=== PATIENT | female | born 1950 | race Caucasian/White ===

== ENCOUNTER → 2017-10-31 01:08 | Outpatient (CLI) | payer MEDICARE, SELFPAY ==
--- NOTE | 2017-10-31 14:33 | DI.REPORT_ITS ---
SYMPTOM/DIAGNOSIS: WORSENING LOW BACK PAIN, LOW BACK PKAIN M54.5 LUMBOSACRAL SPINE MRI: 10/31 MR examination of the lumbosacral spine was performed according to the usual protocol. No significant bony signal abnormality seen apart from zabrina discal vertebral signal changes at L4-5 consistent with disc degeneration. There are prominent hypertrophic changes of the facet joints particularly at L4- 5 and L5-S1. There is a marked spondylolisthesis or pseudo spondylolisthesis of L4 on L5. This is grossly unchanged from the findings on previous CT of 07/18/2015 and there is approximately 30% vertebral width anterior displacement. Neural foramen appears narrowed at L4-5 on the right. Otherwise neural foramina appear fairly well maintained. There is mild disc bulge at L5-S1. No other significant findings at this level. There is severe central canal spinal stenosis at L4-5. There is moderate central canal spinal stenosis at L3-4. There is mild central canal spinal stenosis at L2-3. CONCLUSION: Marked facet hypertrophic degenerative changes causing severe central canal spinal stenosis at L4-5. Moderate central canal spinal stenosis noted at L3-4 and mild central canal spinal stenosis at L2-3. Disc bulges contribute to the degree of central canal spinal stenosis at each of these levels without evidence of a focal disc herniation. There is moderate anterior pseudospondylolisthesis of L5 on L5. Incidental note is made of a large upper pole right renal cyst.
== END ==
PROVIDERS: PCP Family Medicine; Visit Provider Family Medicine
DX: M54.5 Low back pain (principal); M47.816 Spondylosis without myelopathy or radiculopathy, lumbar region; M48.061 Spinal stenosis, lumbar region without neurogenic claudication; M43.16 Spondylolisthesis, lumbar region
CPT/HCPCS: 72148

== ENCOUNTER 2017-11-09 10:09 | Outpatient (CLI) | payer MEDICARE, SELFPAY | END 2017-11-09 10:10 | PROVIDERS: PCP Family Medicine; Visit Provider Student in an Organized Health Care Education/Training Program | DX: Z47.89 Encounter for other orthopedic aftercare (principal); G56.01 Carpal tunnel syndrome, right upper limb; M48.062 Spinal stenosis, lumbar region with neurogenic claudication | CPT/HCPCS: 99214 ==

== ENCOUNTER 2018-05-13 14:31 | Outpatient (CLI) | payer MEDICARE, SELFPAY ==
--- NOTE | 2018-05-13 14:26 | DI.RAD_ITS ---
SYMPTOM/DIAGNOSIS: NECK AND LT SHOULDER PAIN LEFT SHOULDER: There is mild spurring at the AC joint. Spurring is seen at the glenoid. There is no glenohumeral joint space narrowing. The humeral head appears normally positioned. No tendon or joint space calcifications are seen. IMPRESSION: Mild degenerative changes. CERVICAL SPINE: There is moderate narrowing of the C 5-6 disc space. There are endplate osteophytes projecting circumferentially at this level. The remaining disc spaces are well maintained. There are mild to moderate facet degenerative changes throughout. There are also degenerative changes at C 1-2. IMPRESSION: Degenerative disc changes at C 5-6. Facet degenerative changes are seen throughout the spine.
== END 2018-05-13 14:51 ==
PROVIDERS: PCP Family Medicine; Referring Provider Family Medicine; Visit Provider Student in an Organized Health Care Education/Training Program
DX: M54.2 Cervicalgia (principal); M19.012 Primary osteoarthritis, left shoulder; M50.322 Other cervical disc degeneration at C5-C6 level; M47.812 Spondylosis without myelopathy or radiculopathy, cervical region
CPT/HCPCS: 20610; 99212; 99213; 72050; 73030; J1040

== ENCOUNTER 2019-02-12 02:25 | Outpatient (CLI) | payer MEDICARE, SELFPAY ==
[2019-02-12 10:40] LABS: Anion Gap 13.6 mmol/L (3-11); BUN 20 mg/dL (7-18); CO2 25.4 mmol/L (21.0-32.0); CREATININE 0.74 mg/dL (0.55-1.02); Calculated LDL 104 mg/dL; Chloride 106 mmol/L (98-107); Cholesterol 184 mg/dL (<200); Glucose 112 mg/dL (74-106); HDL Cholesterol 58 mg/dL (40-60); Potassium 4.1 mmol/L (3.5-5.1); Sodium 145 mmol/L (136-145); Triglyceride 113 mg/dL (<150)
== END 2019-02-12 02:45 ==
PROVIDERS: PCP Family Medicine; Visit Provider Family Medicine
DX: E78.5 Hyperlipidemia, unspecified (principal); R73.9 Hyperglycemia, unspecified
CPT/HCPCS: 36415; 80048; 80061

== ENCOUNTER → 2019-03-28 10:02 | Outpatient (BNVA) | payer MEDICARE, SELFPAY | PROVIDERS: PCP Family Medicine; Referring Provider Family Medicine; Visit Provider Physical Therapy Assistant | DX: Z86.010 Personal history of colon polyps (principal); Z12.11 Encounter for screening for malignant neoplasm of colon ==

== ENCOUNTER 2019-05-09 06:15 | Day surgery (SDC) | payer MEDICARE, SELFPAY ==
[2019-05-09 06:15] VITALS: BP 92/67; PULSE 69; RESP 16; TEMP 36.2; O2SAT 95
[2019-05-09] MEDS: Lactated Ringers 1,000 ML 80 ML IV (06:57)
--- NOTE | 2019-05-09 07:26 | W.PM.HP.N ---
Date of service: 05/09/19 Time of Service: 07:26 Assessment and Plan Assessment and plan (1) Polyp of colon: Status: Acute Assessment and plan: I advised colonoscopy. The procedure was described including the risks of perforation with need for surgery or bleeding. Prep instructions discussed. Patient agrees to proceed. History of Present Illness Narrative: 68 y/o female with history of chronic Hepatitis C, GERD, Bipolar 1 disorder and obesity presents for screening colonoscopy. Her last screening was in 2013, which was remarkable for tubular adenomatous polyps. She denies a family history of colon cancer. She denies any changes in bowel habits including bloody or black tarry stools, abdominal pain, diarrhea or constipation. She denies constitutional symptoms. Denies use of marijuana or any other recreational or illegal drugs. She discussed having GERD symptoms, which included the sensation that food was getting stuck and causing her to choke. This had happened in the past, which resolved after taking Omeprazole, however this has returned. Her PCP started Omeprazole again and her symptoms have resolved. She does not wish to proceed with having another EGD at this time. EGD from 2017 did not show any inflammation and was (-) for H. Pylori. She denies chest pain, palpitations, dyspnea or dyspnea with exertion. She reports that she walks 2-4 miles/day. She denies prior history or family history of adverse reactions or complications with anesthesia. She reports implanted metal in her lower back. Review of Systems All systems reviewed & are unremarkable except as noted in HPI and below PFSH Medical History Depressed bipolar I disorder Esophagitis GERD (gastroesophageal reflux disease) Hepatitis C 15 monthes of interferon, no longer postive for hep c per pt. 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 states she did not have this done,pt. states she has had a fallopian tube and one ovary Bunionectomy 04/13/17; DR. NORMAN Colonoscopy - [facility] 06/09/13; TUBULAR ADENOMA EGD - [facility] (04/26/16) Fusion of lumbar spine (Resolved ~12/25/17) [facility] [place];L3-4 DECOMPRESSION AND FUSION Hx of section (Chronic) x 2 Family History Mother , age 94 Stroke Father , ANEURYSM at age 64. Alcohol abuse Heart disease Sister , age 62 Substance abuse Heart disease Sister Breast cancer Brother MS (multiple sclerosis) Maternal Grandfather Heart disease Paternal Grandfather Aneurysm Maternal Grandmother Parkinsons disease Son No problems noted. Son No problems noted. Son No problems noted. Daughter No problems noted. Social History Smoking/Tobacco Use Status: Never Second Hand Exposure: Yes Alcohol Intake: former Drug use: Current Sobriety Substance use type: does not use Details: 33 years since alcohol intake Caregiver/Support person: No Household members: none Housing: house Communication Needs: None Do you need help understanding health information?: Rarely Pets and animals: No Sexually active: No Do you think of yourself as: straight/heterosexual Current gender identity: female What is your relationship status?: How often do you talk on the phone with friends or family?: three or more times per week How often do you get together with friends or relatives?: once per week How often do you attend temple or islam services?: 1-3 times per year Do you belong to any clubs or organized social groups?: yes Panel score (0-1 are the most socially isolated patients): 2 What type of physical activity do you participate in: walking Duration: 30-45 minutes/day Frequency: daily Debora/Denominational: Unitarian Universalist Special debora needs: No Seatbelt use: always Helmet use: Yes Helmet use: sometimes Drive intox or ride w/intox milk pickup driver: No Do you feel safe at home: Yes Additional Social history: lives alone Meds Home Medications and Allergies Home Medications Medication Instructions Recorded Confirmed Type aspirin 325 mg PO DAILY #30 tab 01/04/17 05/06/19 Rx PreserVision AREDS-2 1 ea PO BID 03/28/17 05/09/19 History [id number] 2 drp OTIC BID PRN drp 05/30/18 02/25/20 History adjuvant AS01B (PF)vial 1 of 2 0.5 ml IM DAILY #0.5 ml 02/18/19 05/06/19 Rx atorvastatin 40 mg tablet 40 mg PO QPM #90 tab 02/18/19 05/09/19 Rx lamotrigine 100 mg tablet 250 mg PO DAILY #90 tab 02/18/19 05/09/19 Rx lorazepam 1 mg tablet 1 mg PO DAILY PRN #5 tab 02/18/19 05/06/19 Rx omeprazole 40 mg capsule,delayed 40 mg PO DAILY #90 cap 02/18/19 05/09/19 Rx release trazodone 100 mg tablet 100 mg PO HS PRN #90 tab-cap 02/18/19 05/09/19 Rx bisacodyl 5 mg tablet,delayed 5 mg PO ONCE #4 tab 03/28/19 05/09/19 Rx release polyethylene glycol 3350 17 238 g PO ONCE #238 gm 03/28/19 05/09/19 Rx gram/dose oral powder meclizine 25 mg tablet 25 mg PO TID PRN #30 tab-cap 04/16/19 05/09/19 Rx metformin 500 mg PO DAILY 04/16/19 05/09/19 History Allergies Allergy/AdvReac Type Severity Reaction Status Date / Time No Known Allergies Allergy Verified 05/09/19 06:25 Exam Const General: healthy appearing and not in acute distress Nutritional Appearance: well nourished Orientation: oriented x3 HENMT Head: normal to inspection Eyes Sclera: sclerae normal Pupils: PERRL Neck Neck: no lymphadenopathy Thyroid: thyroid normal Lymphatic: no lymphadenopathy noted Resp Effort & Inspection: normal respiratory effort Auscultation: clear to auscultation bilaterally and no wheezes Cardio Rate: regular rate Rhythm: regular rhythm GI Inspection: non-distended Palpation: soft, no hepatosplenomegaly, no hernias and nontender Skin General skin exam: no rashes or lesions noted Neuro General: alert Cognition: normal cognition Extrem General: normal to inspection Psych Affect: normal affect Attitude: cooperative Results Last Vital Signs Temp 97.2 F L 05/09/19 06:15 Pulse 69 05/09/19 06:15 Resp 16 05/09/19 06:15 BP 92/67 L 05/09/19 06:15 Pulse Ox 95 05/09/19 06:15
--- NOTE | 2019-05-09 07:55 | BOWEL_PTH ---
PATIENT: Ronnie Aguilera LOC: [facility] U#:[id number] AGE/SX: 68/F ROOM: RE05/09/[address]: Carrie Bhandari MD : [id number] BED: DIS: 05/09/2019 SPEC #: [id number] RECD: 05/09/19 11:35 STATUS: ANA REQ #: [id number] KALYAN: 05/09/19 07:[address]: Carrie Bhandari DEPT: Surgical Specimen RECD BY: Taty Webb ENTERED: 05/09/19 11:37 SP TYPE: Bowel OTHR DR: Asif Elam MD Tissues: 1 - BIOPSY BOWEL 2 - BIOPSY BOWEL Procedures: GROSS AND MICRO LEVEL 4 Comments: [id number]
--- NOTE | 2019-05-09 08:25 | W.PM.DSUDISC ---
Discharge Plan Disposition Patient Disposition: HOME Condition: Good Discharge Details Reason For Visit: Colonoscopy Attending Provider: Carrie Bhandari Primary Care Provider: Asif Elam Home Meds and New Rx's Prescriptions: Continued Shingrix Adjuvant Component-PF Suspension 0.5 ml IM DAILY Qty: 0.5 RF: 1 atorvastatin [Lipitor] 40 mg tablet 40 mg PO QPM Qty: 90 RF: 3 lamotrigine 100 mg tablet 250 mg PO DAILY Qty: 90 RF: 3 lorazepam 1 mg tablet 1 mg PO DAILY PRN (Reason: anxiety) Qty: 5 RF: 0 trazodone 100 mg tablet 100 mg PO HS PRN Qty: 90 RF: 3 omeprazole 40 mg capsule,delayed release(DR/EC) 40 mg PO DAILY Qty: 90 RF: 3 PreserVision AREDS-2 1 EACH capsule 1 ea PO BID RF: 0 [id number] 10 ML solution 2 drp Otic BID PRN RF: 0 meclizine 25 mg tablet 25 mg PO TID PRN (Reason: dizziness) Qty: 30 RF: 0 metformin 500 mg tablet 500 mg PO DAILY RF: 0 aspirin 325 MG tablet 325 mg PO DAILY Qty: 30 RF: 0 Discontinued polyethylene glycol 3350 17 gram/dose powder 238 g PO ONCE Qty: 238 RF: 0 bisacodyl [Dulcolax (bisacodyl)] 5 mg tablet,delayed release (DR/EC) 5 mg PO ONCE Qty: 4 RF: 0 Discharge Instructions Additional Instructions: Findings: Two small polyps were removed. My office will contact you with results. Follow up: Plan for a colonoscopy in 5 years pending biopsy results. Please call if you develop: fevers >101.5 Nausea or Vomiting Abdominal pain that is not transient Bleeding DAY SURGERY UNIT POST COLONOSCOPY INSTRUCTIONS 1. Because there will be medication in your system for the next 24 hours, you may feel a little sleepy. Your coordination will be affected. Therefore: a. Do not drive or operate dangerous equipment for 24 hours. b. Do not drink alcohol beverages for 24 hours (not even beer). c. Plan to go home and rest for the day. 2. Generally there are no restrictions on your activity after a day or so has gone by, but you may feel a bit fatigued for a few days. 3 After you arrive home you may have a light meal and return to a normal diet as you can tolerate it without feeling sick to your stomach. 4. After surgery, you may feel pain or discomfort. This should be only transient, but if it persists please contact your doctor. 5. If there are any questions regarding the findings of your procedure, please feel free to contact your doctor. 6. If you are unable to contact your doctor with a problem, contact the hospital at [phone]. 7. Continue all your regular medications unless directed otherwise. I understand the above instructions and have no questions. Signature of Patient or Responsible Adult Escort Date/Time Name of Responsible Adult Escort Signature of Nurse Date/Time Activity:: Activity as Tolerated Diet:: As Tolerated Discharge Orders Discharge Orders: Discharge Order (Routine); Ordered 05/09/19 Ordered By: Carrie Bhandari DS: Diagnosis Discharge Diagnosis (1) Polyp of colon: Status: Acute
[2019-05-09 08:45] VITALS: BP 109/69; PULSE 59; RESP 16; TEMP 36.4; O2SAT 94
--- NOTE | 2019-05-09 11:48 | COLE_ITS ---
DATE OF PROCEDURE May 09, 2019 PREOPERATIVE DIAGNOSIS History of colon polyps. POSTOPERATIVE DIAGNOSIS Colon polyps. PROCEDURE Colonoscopy with snare polypectomy. SURGEON Carrie Bhandari M.D. ANESTHESIA General. INDICATIONS This is a 68-year-old woman who presents for routine colonoscopy. Her last colonoscopy in 2013 showed tubular adenomas. She is asymptomatic and has no family history of colon cancer. PROCEDURE She was placed in the left Corona position. Propofol was titrated to sedation. Digital rectal examinati on revealed no abnormalities. The scope was advanced to the cecum without difficulty. Her prep was ex cellent. The ileocecal valve and appendiceal orifice were clearly identified. Along the proximal side of the ileocecal valve region, there was a less than 1-cm polyp that was removed completely with the snare. I did not use cautery due to the thin nature of the cecum. There was good hemostasis. The jessica yp was retrieved for pathology. No abnormalities were seen throughout the remainder of the ascending or transverse colon. In the proximal descending colon, there was a less than 1-cm polyp that was kiera nelda with snare polypectomy using cautery. This was also retrieved for pathology. No other abnormaliti es were seen throughout the descending, sigmoid colon or rectum including on retroflexed view. She to lerated the procedure well and was stable to Recovery. It is anticipated she will need a colonoscopy again in five years pending biopsy results.
== END 2019-05-09 09:10 | disposition home or self-care (01) ==
PROVIDERS: PCP Family Medicine; Visit Provider Surgery
PROC: 0DJD8ZZ Inspection of Lower Intestinal Tract, Via Natural or Artificial Opening Endoscopic (ICD-10-PCS; CPT 45378; principal; 2019-05-09 07:30)
DX: Z12.11 Encounter for screening for malignant neoplasm of colon (principal); D12.0 Benign neoplasm of cecum; D12.4 Benign neoplasm of descending colon; Z86.010 Personal history of colon polyps; K21.9 Gastro-esophageal reflux disease without esophagitis
CPT/HCPCS: 45385; 88305; NC; J2001; J2250

== ENCOUNTER 2020-05-31 10:34 | Outpatient (CLI) | payer MEDICARE, SELFPAY ==
--- NOTE | 2020-05-31 09:45 | DI.RAD_ITS ---
EXAM: XR CERVICAL SPINE COMP 4-5V CLINICAL HISTORY: neck pain. TECHNIQUE: 2D digital imaging was performed. COMPARISON: CR XR cervical spine comp 4-5V from 05/13/2018 FINDINGS: There is no evidence of fracture or listhesis. No offset of the spinal laminar line. No cervical ri bs. Again noted is degenerative disc disease at the C5-6 level disc space narrowing and anterior osteophy eric and prominent bilateral Luschka joint osteophytes seen at this level. Other levels do not exhibi t uncovertebral joint osteophytes. There is mild anterolisthesis of C4 upon C5, related to some dege nerative change in the facet joints. This slight anterior slippage was not evident on the prior 1019 study. The disc space at this level (C4-5 close bran continues to exhibit normal height as does the C6-7 level and other disc spaces. IMPRESSION: Chronic degenerative disc disease C5-6 level with large bilateral Luschka joint osteophytes at this l evel. Mild degenerative anterolisthesis C4 upon C5. If clinically indicated flexion and extension lateral views can be performed to determine the true amount of anterior slippage of C4 upon C5. DATA REPOSITORY: RADIATION DOSE DELIVERED:
== END 2020-05-31 10:35 | disposition home or self-care (01) ==
LOC: DIORS 10:35
PROVIDERS: PCP Family Medicine; Referring Provider Family Medicine; Visit Provider Student in an Organized Health Care Education/Training Program
DX: M47.812 Spondylosis without myelopathy or radiculopathy, cervical region (principal); M50.221 Other cervical disc displacement at C4-C5 level; Z98.890 Other specified postprocedural states
CPT/HCPCS: 99214; 72050

== ENCOUNTER → 2020-06-15 02:10 | Outpatient (CLI) | payer MEDICARE, SELFPAY ==
--- NOTE | 2020-06-15 08:15 | DI.MRI_ITS ---
EXAM: MR CERVICAL SPINE WO CLINICAL HISTORY: CERVICAL SPINE DEGENERATION,NECK PAIN,M47.812,M54.2. TECHNIQUE: Multiplanar multisequence MRI was performed. COMPARISON: MR MRI - CERVICAL SPINE WO CONT from 01/03/2017 FINDINGS: MR examination cervical spine was performed according to the usual protocol. No significant bony signal abnormality seen. There is a mild mid cervical kyphosis. Facet joints ap pear fairly well maintained by MR criteria. Images obtained through the posterior fossa show unremarkable appearance of the cerebellum, chantal, and medulla as visualized. Cervical spinal cord shows normal diameter and normal signal throughout. No significant findings at C2-3 level. At C3-4, there appears to be right-sided neural foraminal stenosis. No disc herniation or central ca nal spinal stenosis. At C 4 5, there is left neural foraminal stenosis. There is no disc herniation or central canal spin al stenosis. At C5-6 there is a moderate-sized right paracentral disc herniation. There is bilateral neural fora christopher stenosis. There is no evidence of spinal cord compression at this level. Spinal cord shows no rmal signal. At C 6 7, there is no evidence of disc herniation. The central canal and neural foramina appear inta ct. At C7 T1 and T1-T2, neural foramina are not well visualized. No evidence of disc herniation or centr al canal spinal stenosis. IMPRESSION: Moderate-size right paracentral disc herniation at C5-6 with no gross cord impingement. Probably no significant interval change in the disc herniation in comparison with prior cervical spine MRI of Dec. Multilevel neural foraminal narrowing, please see above discussion for findings at individual levels. DATA REPOSITORY:
== END ==
PROVIDERS: PCP Family Medicine; Visit Provider Student in an Organized Health Care Education/Training Program
DX: M54.2 Cervicalgia (principal); M50.222 Other cervical disc displacement at C5-C6 level; M47.812 Spondylosis without myelopathy or radiculopathy, cervical region
CPT/HCPCS: 72141

== ENCOUNTER 2021-01-03 09:12 | Outpatient (CLI) | payer MEDICARE, SELFPAY ==
[2021-01-04 12:06] LABS: Calculated LDL 184 mg/dL (<100); Cholesterol 264 mg/dL (<200); HDL Cholesterol 53 mg/dL (40-60); Triglyceride 136 mg/dL (<150)
[2021-01-04 13:08] LABS: Lamotrigine 8.7 mcg/mL (2.5 - 15.0)
== END 2021-01-03 09:13 | disposition home or self-care (01) ==
PROVIDERS: PCP Family Medicine; Visit Provider Family Medicine
DX: G40.909 Epilepsy, unspecified, not intractable, without status epilepticus (principal); Z51.81 Encounter for therapeutic drug level monitoring; E78.5 Hyperlipidemia, unspecified
CPT/HCPCS: 36415; 80061; 80175

== ENCOUNTER 2021-04-07 03:27 | Outpatient (CLI) | payer MEDICARE, SELFPAY ==
[2021-04-07 13:15] LABS: Calculated LDL 107 mg/dL (<100); Cholesterol 196 mg/dL (<200); HDL Cholesterol 63 mg/dL (40-60); Triglyceride 130 mg/dL (<150)
== END 2021-04-07 03:28 | disposition home or self-care (01) ==
LOC: LBO 03:28
PROVIDERS: PCP Family Medicine; Visit Provider Family Medicine
DX: E78.5 Hyperlipidemia, unspecified (principal)
CPT/HCPCS: 36415; 80061

== ENCOUNTER 2021-06-22 02:04 | Outpatient (CLI) | payer MEDICARE, SELFPAY ==
--- NOTE | 2021-06-22 08:53 | DI.MAMMO_ITS ---
Exam(s) MAMMO SCREENING EXAM: MAMMO SCREENING CLINICAL HISTORY: screening,z12.39 TECHNIQUE: Mammograms were interpreted according to the usual protocol including computer analysis w [employer] CAD system, tomosynthesis and C-view imaging. COMPARISON: FINDINGS: The breasts are of moderate density with fairly symmetrical distribution of fibroglandular tissue. N o dominant mass is identified in either breast. There is a geographic root being of predominantly pu nctate microcalcifications in the upper outer quadrant of the right breast. Findings are unchanged c omparison with prior examinations of August 2017 and April 2016. No new clumped microcalcification seen. No other significant change IMPRESSION: No specific evidence of malignancy at this time. Follow-up mammogram requested in 12 months to re-ev aluate stable probably benign microcalcifications of the right breast as described above. BI-RADS Category 2 - Benign Findings Breast Density - Category B - Scattered areas of fibroglandular density
== END 2021-06-22 02:24 ==
PROVIDERS: PCP Family Medicine; Visit Provider Family Medicine
DX: Z12.39 Encounter for other screening for malignant neoplasm of breast (principal)
CPT/HCPCS: 77063; 77067

== ENCOUNTER 2021-06-24 09:53 | Outpatient (CLI) | payer MEDICARE, SELFPAY ==
--- NOTE | 2021-06-24 09:30 | DI.RAD_ITS ---
Exam(s) XR KNEE RT 3V AP,LAT,SHEREE EXAM: XR KNEE RT 3V AP,LAT,SHEREE CLINICAL HISTORY: R knee pain. TECHNIQUE: 2D digital imaging was performed of the right knee. Three views obtained. AP, lateral nguyen nt and PA tunnel views were obtained. COMPARISON: CR RIGHT KNEE 3 VIEWS from 12/12/2011 FINDINGS: BONES: No acute fracture is present. No bony destructive lesion is seen. JOINTS: The knee is normally aligned. Small suprapatellar joint effusion. Moderate degenerative galeas ges are seen in the right knee with joint space narrowing and periarticular spurring. The findings a re most marked in the medial femoral tibial joint. SOFT TISSUE: Normal. IMPRESSION: Moderate osteoarthritis of the right knee. DATA REPOSITORY: RADIATION DOSE DELIVERED:
== END 2021-06-24 09:54 | disposition home or self-care (01) ==
LOC: DIORS 09:54
PROVIDERS: PCP Family Medicine; Referring Provider Family Medicine; Visit Provider Student in an Organized Health Care Education/Training Program
DX: M25.561 Pain in right knee; M17.11 Unilateral primary osteoarthritis, right knee
CPT/HCPCS: 20610; 73562; J1040

== ENCOUNTER 2021-09-15 11:48 | Outpatient (CLI) | payer MEDICARE, SELFPAY ==
--- NOTE | 2021-09-15 11:00 | DI.RAD_ITS ---
Exam(s) XR STANDING ALIGNMENT EXAM: XR STANDING ALIGNMENT CLINICAL HISTORY: TKR planning. TECHNIQUE: 2D digital imaging was performed. COMPARISON: CR XR KNEE RT 3V AP,LAT,SHEREE from 06/24/2021 FINDINGS: There is tri level fusion hardware in the lower lumbar spine Hips appear unremarkable. Is moderate narrowing of the medial compartment the right knee again noted . Lateral compartment exhibits normal height. There is mild narrowing of the medial compartment opp osite-left knee. Lateral compartment of left knee appears unremarkable. Ankles unremarkable. IMPRESSION: There is significant moderate in the medial compartment of the right knee. Hips unremarkable. Lumbosacral tri level fusion hardware L3, L4, and L5 levels. DATA REPOSITORY: RADIATION DOSE DELIVERED:
== END 2021-09-15 11:49 | disposition home or self-care (01) ==
LOC: DIORS 11:48
PROVIDERS: PCP Family Medicine; Referring Provider Family Medicine; Visit Provider Physician Assistant
DX: M17.11 Unilateral primary osteoarthritis, right knee (principal); Z01.818 Encounter for other preprocedural examination
CPT/HCPCS: 77073

== ENCOUNTER 2021-09-26 01:22 | Outpatient (CLI) | payer MEDICARE, SELFPAY | END 2021-09-26 01:23 | disposition home or self-care (01) | LOC: LBO 01:22 | PROVIDERS: PCP Family Medicine; Visit Provider Student in an Organized Health Care Education/Training Program ==

== ENCOUNTER 2021-09-26 02:27 | Outpatient (CLI) | payer MEDICARE, SELFPAY ==
[2021-09-26 11:47] LABS: HCT 35.8 % (36.0-46.0); HGB 12.3 g/dL (11.2-15.7); MCHC 34.4 % (32.0-36.0); MCV 93 fL (80-95); MPV 10.2 fL (8.0-11.0); Platelet Count 186 10^3/uL (130-400); RBC 3.84 10^6/uL (3.93-5.22); RDW 11.9 % (11.7-14.6); RDW-SD 39.9 fL; WBC 5.69 10^3/uL (4.4-10.8)
[2021-09-26 11:59] LABS: Source Nasal/Nares
[2021-09-26 12:03] LABS: Hemoglobin A1C 5.5 % (<5.7)
[2021-09-26 12:18] LABS: Anion Gap 8.5 mmol/L (3-11); BUN 17 mg/dL (7-18); CO2 26.5 mmol/L (21.0-32.0); CREATININE 0.9 mg/dL (0.55-1.02); Chloride 108 mmol/L (98-107); Glucose 98 mg/dL (74-106); Potassium 3.4 mmol/L (3.5-5.1); Sodium 143 mmol/L (136-145)
[2021-09-26 15:36] LABS: COVID-19 PCR Negative (Negative)
== END 2021-09-26 02:28 | disposition home or self-care (01) ==
LOC: LBO 02:27
PROVIDERS: PCP Family Medicine; Visit Provider Student in an Organized Health Care Education/Training Program
DX: M25.561 Pain in right knee (principal); M17.11 Unilateral primary osteoarthritis, right knee; R73.9 Hyperglycemia, unspecified; Z20.822 Contact with and (suspected) exposure to COVID-19; Z01.818 Encounter for other preprocedural examination; Z01.812 Encounter for preprocedural laboratory examination
CPT/HCPCS: 36415; 80048; 85027; 87635; 83036

== ENCOUNTER 2021-09-27 07:33 | Observation (INO) | payer MEDICARE, SELFPAY ==
[2021-09-27] VITALS (19 sets, daily range): BP systolic 118–169; BP diastolic 57–106; PULSE 43–62; RESP 9–20; TEMP 35.8–37; TEMPC 36.4; O2SAT 94–99; BMI 29.9
[2021-09-27] MEDS: Gabapentin 300 MG CAP PO ×2 (07:29→23:13)
[2021-09-27] MEDS: Celecoxib 200 MG CAP 400 MG PO (07:29)
[2021-09-27] MEDS: Acetaminophen 500 MG TAB 1000 MG PO ×2 (07:30→19:45)
--- NOTE | 2021-09-27 07:35 | PDOC.DSDIS_ITS ---
Discharge Plan Disposition Patient Disposition: HOME Condition: Good Discharge Details Reason For Visit: Right TKA Attending Provider: Giovanny Ravi Primary Care Provider: Asif Elam Home Meds and New Rx's Prescriptions: New celecoxib [Celebrex] 200 mg capsule 200 mg PO BID Qty: 60 0RF gabapentin 300 mg capsule 300 mg PO QHS Qty: 14 0RF acetaminophen 500 mg capsule 1,000 mg PO Q8H PRN PRNQty: 90 0RF oxycodone 5 mg tablet 5 mg PO Q4H PRNQty: 18 0RF ondansetron 4 mg tablet,disintegrating 4 mg PO Q8H PRNQty: 10 0RF Continued Shingrix Adjuvant Component-PF Suspension 0.5 ml IM DAILY Qty: 0.5 1RF Label Comments: pt. reports she did receive about a year ago Rx Instructions: given 2nd dose 2-6 months after first trazodone 100 mg tablet 100 mg PO HS PRN Qty: 90 3RF Rx Instructions: [facility] [place] PreserVision AREDS-2 1 EACH capsule 1 ea PO BID meclizine 25 mg tablet 25 mg PO TID PRN (Reason: dizziness) Qty: 30 3RF atorvastatin [Lipitor] 40 mg tablet 40 mg PO QPM Qty: 90 3RF metformin 500 mg tablet 500 mg PO DAILY aspirin 325 mg Tablet 650 mg PO DAILY omeprazole 40 mg capsule,delayed release(DR/EC) 40 mg PO HS lamotrigine 100 mg tablet 250 mg PO HS Rx Instructions: [facility] [place] Discharge Instructions Additional Instructions: Total Knee Discharge Instructions Activity: The most important activity is to walk. You should try to take short walks a few times a day. It is important that when resting you work on keeping the knee straight. Avoid putting a pillow behind the knee as this will encourage flexion. Work on range of motion exercises as provided by Physical Therapy. If you have the [employer] bike coming, this will be your primary tool for exercise after the knee replacement. You should use it and follow the directions for the knee. Utilize the other exercises sparingly based on your symptoms. - Start outpatient physical therapy within 2 weeks. - You should wear the JG hose on both legs for 2 weeks. You may remove these at night. You may also use any compression sock in place of the JG hose. - Utilize [employer] to review exercises, see videos on exercises and ob tain basic information pertaining to your surgery and your recovery. Dressing: Remove the Gary wrap by 2 days after your surgery and put on the JG stocking given to you from the hospital. Keep the surgical dressing (underneath the GARY wrap) in place for at least one week. After the first week it may be removed and replaced with light gauze and tape or nothing. The wound and dressing may get wet after 3 days but avoid soaking the dressing or otherwise it will need to be changed. Many people prefer covering the dressing with cling wrap (saran wrap) to minimize it from getting soaked. If it gets wet, just pat dry. If it starts to peel off then it will need to be changed. Medications: - You should take Tylenol and anti-inflammatory Celebrex as your primary pain control medications. If the Celebrex is too expensive or not covered, please call the office for another alternative (Advil/Ibuprofen or Naproxen/Aleve) - You have been prescribed a stronger pain medication Oxycodone for breakthrough pain, take as needed as prescribed. - Continue with your stomach acid reduction agent Omeprazole to help reduce stomach acid and reflux. - You have been prescribed Gabapentin to take at night for restlessness and nerve pain. - Continue taking 325mg for DVT prevention unless instructed otherwise. - If you have constipation you should take Colace or Miralax (both [id number]). It takes most people 3-4 days to have a bowel movement. Follow-up: 2 weeks If you have any acute concerns or questions, please do not hesitate to contact the office at [phone]. You may contact Dr. Ravi with any questions after hours through the hospital at [phone] or on his cell phone at [phone]. Stand Alone Forms: Anesthesia Discharge Inst., Anes.Nerve Block Instructions, Rony Haq (DSU) Referrals: Giovanny Ravi MD [ [facility] STAFF PHYSICIAN] - Equipment/Supplies: Walker Activity:: Activity as Tolerated Remove Dressings/Wound Care:: Do Not Remove Shower/Bathe:: 72 hours Diet:: As Tolerated Discharge Orders Discharge Orders: Discharge Order (Routine); Ordered 09/27/21 Ordered By: Fernanda Zarate DS: Diagnosis Discharge Diagnosis (1) Primary osteoarthritis of right knee: Status: Acute
[2021-09-27] MEDS: Lactated Ringers 1,000 ML 80 ML IV (08:21)
--- NOTE | 2021-09-27 08:33 | W.ANESPRE ---
General Info Date of Service Date Performed: 09/27/21 Height: 5 ft 1 in Weight: 72 kg Body Mass Index (BMI): 29.9 Surgical Procedure: Operation Date: 09/27/21 09:55 Proposed Procedure Side Surgeon p Knee Total Arthroplasty Cementless CR Right Giovanny Ravi MD Meds Allergies and Home Medications Allergies Allergy/AdvReac Type Severity Reaction Status Date / Time No Known Allergies Allergy Verified 09/27/21 07:40 Home Medication Medication Instructions Recorded vit C 250 mg-vit E 90 mg-zinc 40 1 ea PO BID 03/28/17 mg-copper 1 [id number] capsule (PreserVision AREDS-2) adjuvant AS01B (PF)vial 1 of 2 0.5 ml IM DAILY #0.5 mL 02/18/19 (Shingrix Adjuvant Component (PF) intramuscular suspension) trazodone 100 mg tablet 100 mg PO HS PRN #90 tab-caps 02/18/19 metformin 500 mg tablet 500 mg PO DAILY 04/16/19 meclizine 25 mg tablet 25 mg PO TID PRN dizziness #30 07/05/20 tab-caps atorvastatin 40 mg tablet (Lipitor) 40 mg PO QPM #90 tabs 03/08/21 aspirin 325 mg tablet 650 mg PO DAILY 09/23/21 lamotrigine 100 mg tablet 250 mg PO HS 09/23/21 omeprazole 40 mg capsule,delayed 40 mg PO HS 09/23/21 release acetaminophen 500 mg capsule 1,000 mg PO Q8H PRN PRN #90 caps 09/27/21 celecoxib 200 mg capsule (Celebrex) 200 mg PO BID #60 caps 09/27/21 gabapentin 300 mg capsule 300 mg PO QHS #14 caps 09/27/21 oxycodone 5 mg tablet 5 mg PO Q4H PRN #18 tabs 09/27/21 Current Visit Medications: Current Medications Generic Name Dose Route Start Last Admin Trade Name Freq PRN Reason Stop Dose Admin Acetaminophen 1,000 mg 09/27/21 06:00 09/27/21 07:30 Acetaminophen 500 Mg Tab PO 09/27/21 16:00 1,000 mg PREOP RIKKI Administration Acetaminophen 1,000 mg 09/27/21 14:00 Acetaminophen 500 Mg Tab PO TID RIKKI Aspirin 81 mg 09/27/21 20:00 Aspirin E.C. 81 Mg Tabec PO BID RIKKI Celecoxib 400 mg 09/27/21 06:00 09/27/21 07:29 Celecoxib 200 Mg Cap PO 09/27/21 16:00 400 mg PREOP RIKKI Administration Celecoxib 200 mg 09/27/21 20:00 Celecoxib 200 Mg Cap PO BID RIKKI Docusate Sodium 100 mg 09/27/21 07:34 Docusate Sodium 100 Mg Cap PO BID PRN PRN Constipation Gabapentin 300 mg 09/27/21 06:00 09/27/21 07:29 Gabapentin 300 Mg Cap PO 09/27/21 16:00 300 mg PREOP RIKKI Administration Gabapentin 300 mg 09/27/21 22:00 Gabapentin 300 Mg Cap PO HS RIKKI Hydromorphone HCl 0.5 mg 09/27/21 07:34 Hydromorphone 2 Mg/Ml Vial IVP Q2H PRN PRN Tranexamic Acid 1,000 mg/ 60 mls @ 360 mls/hr 09/27/21 06:00 Sodium Chloride IVPB 09/27/21 16:00 PREOP [facility] Ringer's Solution 1,000 mls @ 80 mls/hr 09/27/21 06:00 09/27/21 08:21 IV 10/26/21 23:59 80 mls/hr INFUSION RIKKI Administration Cefazolin Sodium 2,000 mg/ 100 mls @ 200 mls/hr 09/27/21 06:00 Sodium Chloride IVPB 09/27/21 16:00 PREOP RIKKI Cefazolin Sodium/Dextrose 1 gm in 50 mls @ 100 mls/hr 09/27/21 17:00 Ancef Duplex IVPB 09/28/21 09:29 Q8H [facility] IV Miscellaneous Supplies 1 each 09/27/21 06:00 Iv Access IV 10/26/21 23:59 DIRECTED RIKKI Ondansetron HCl 4 mg 09/27/21 07:34 Ondansetron 4 Mg/2 Ml Vial IVP Q6H PRN PRN Nausea Oxycodone HCl 0 mg 09/27/21 07:34 Oxycodone 5 Mg Tab PO Q3H PRN PRN Pain Pantoprazole Sodium 40 mg 09/28/21 07:30 Pantoprazole 40 Mg Tabcr PO DAILY@0730 [facility] Sodium Chloride 0 ml 09/27/21 06:00 Normal Saline Flush 10 Ml Syr IV 10/26/21 23:59 PRN PRN Sodium Chloride 0 ml 09/27/21 06:00 Normal Saline 10 Ml Vial IJ 10/26/21 23:59 DIRECTED PRN Sterile Water 0 ml 09/27/21 06:00 Water,Injection,Sterile 10 Ml Vial IJ 10/26/21 23:59 DIRECTED PRN PFSH Active Problems Active Problems: Problem Status Onset Code Weakness of left arm R29.898 Stroke I63.9 Depressed bipolar I disorder F31.9 Esophagitis 04/26/16 K20.9 Gastroesophageal reflux disease K21.9 Hepatitis a without hepatic coma B15.9 Hyperlipidemia E78.5 Lumbago M54.5 Left carpal tunnel syndrome 03/28/17 G56.02 Low back pain M54.5 Numbness and tingling in left arm 01/11/17 R20.0, R20.2 Overweight E66.3 Polyp of colon 06/09/13 K63.5 Right carpal tunnel syndrome 09/19/17 G56.01 Spinal stenosis of lumbar region with neurogenic claudication 11/09/17 M48.062 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 Depressed bipolar I disorder Esophagitis Hepatitis C 15 monthes of interferon, no longer postive for hep c per pt. 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 states she did not have this done,pt. states she has had a fallopian tube and one ovary Bunionectomy 04/13/17; DR. NORMAN Colonoscopy - MAC 06/09/13; TUBULAR ADENOMA EGD - [facility] (04/26/16) [place] of [place]12[place]25/17[place] [facility] [place] DECOMPRESS[place] AND FUSION H/O carpal tunnel repair Hx of section x 2 Tobacco Smoking/Tobacco Use Status: Never Passive smoking exposure: Yes Second hand exposure: Yes Alcohol Alcohol Intake: former Substance Use Substance use: Current Sobriety Substance use type: does not use Details: 33 years since alcohol intake Vital Signs and Lab Results Vital Signs Most Recent Vital Signs in EMR: Most Recent Vital Signs Temp Pulse Resp BP Pulse Ox 36.8 C 62 18 143/96 H 97 09/27/21 07:32 09/27/21 07:32 09/27/21 07:32 09/27/21 07:32 09/27/21 07:32 Point of Care Results Point of Care Results: Finger Stick Blood Glucose 105 09/27/21 08:09 Lab Results Blood Type / Crossmatch: No Data to Display Complete Blood Count: White Blood Count 5.69 10^3/uL (4.4-10.8) 09/26/21 11:42 Red Blood Count 3.84 10^6/uL (3.93-5.22) L 09/26/21 11:42 Hemoglobin 12.3 g/dL (11.2-15.7) 09/26/21 11:42 Hematocrit 35.8 % (36.0-46.0) L 09/26/21 11:42 Platelet Count 186 10^3/uL (130-400) 09/26/21 11:42 Complete Metabolic Panel: Sodium Level 143 mmol/L (136-145) 09/26/21 11:42 Potassium Level 3.4 mmol/L (3.5-5.1) L 09/26/21 11:42 Chloride Level 108 mmol/L (98-107) H 09/26/21 11:42 Carbon Dioxide Level 26.5 mmol/L (21.0-32.0) 09/26/21 11:42 Blood Urea Nitrogen 17 mg/dL (7-18) 09/26/21 11:42 Creatinine 0.9 mg/dL (0.55-1.02) 09/26/21 11:42 Estimated GFR/1.73 m2 >= 60.00 (mL/min/1.73m2) 09/26/21 11:42 Calcium Level 9.0 mg/dL (8.5-10.1) 09/26/21 11:42 Glucose Level 98 mg/dL (74-106) 09/26/21 11:42 Hemoglobin A1c 5.5 % (<5.7) 09/26/21 11:42 Liver Function Panel: No Data to Display Coagulation Panel: No Data to Display Cardiac Panel: No Data to Display Arterial Blood Gas: No Data to Display Venous Blood Gas: No Data to Display Pancreas Panel: No Data to Display Thyroid Panel: No Data to Display Infectious Disease: Coronavirus (COVID-19)(PCR) Negative (Negative) 09/26/21 10:34 Coronavirus 2019 Source Nasal/Nares 09/26/21 10:34 Blood Cultures: No Data to Display Toxicology Panel: No Data to Display Anesthesia Assessment and Plan Anesthesia History Personal History: Delayed Emergence Family History: No Family History of Anesthesia Complications Exercise Tolerance Exercise Tolerance: Metabolic Equivalents>4 Pertinent Negatives Pertinent Negatives: No Symptoms of GERD (Well controlled with medication ), No Major Cardiovascular Symptoms or Complaints, No Major Pulmonary Symptoms or Complaints and No History of CVA/TIA Cardiac & Pulmonary Exam Cardiac Exam: Normal S1/S2 Heart Sounds Pulmonary Exam: Clear Bilateral Breath Sounds Implantable Cardiac Device Does patient have a Pacemaker or an ICD?: No Airway Exam Known Difficult Airway: No Mallampati Class: 1 Mouth Opening: Normal (> 3cm) Thyromental Distance: Greater than 3 cm Neck Range of Motion: Full ROM Neck Circumference: Normal Teeth Condition: Normal Dentition Airway Comments: Multiple missing but nothing loose Caps in back lower right ASA Classification ASA Score: ASA 2 Emergency Case?: No NPO Status NPO Status: NPO Clears >2 hours, Solids >8 hours Anesthesia Plan Resuscitation Status: Full Code Anesthesia Technique: Spinal Anesthesia Airway Planned: Natural Airway Pain Management: Surgeon and patient request nerve block Monitors Used: Standard Monitors
[2021-09-27] MEDS: ceFAZolin 2,000 MG in Normal Saline 100 ML 200 ML IVPB (09:29)
--- NOTE | 2021-09-27 09:36 | W.ANESNERVE ---
Nerve Block Single Injection Procedure Date and Time Date Performed: 09/27/21 Procedure Start: 08:50 Location Where Procedure Performed Procedure Location: Day Surgery Unit (214) Reason Performed: Postoperative Analgesia Requesting Provider: Giovanny Ravi Timeout Performed Timeout Performed: Yes Monitoring Used ECG, Blood Pressure and SpO2 Sterility Sterility: Hand Hygiene, Surgical Cap, Surgical Mask, Sterile Gloves, Eye Protection and Chlorhexidine Sedation Given During Procedure Sedation Given (Indicate Dose Given): No Sedation given Patient Mental Status Patient Mental Status: Awake Nerve Block 1st Nerve Block: Laterality: Right Block Type: Adductor Canal Needle / Catheter Used: 100mm SonoPlex II Local Anesthetic Bolus (Indicate Dose Given): Lidocaine used for local infiltration of skin, Injected in 3-5ml increments after negative blood aspiration and Bupivacaine 0.25% Dose:: 15 cc Additives (Indicate Dose Given): None Ultrasound: Sterile probe cover and gel used Ultrasound Image Saved?: Yes Nerve Stimulator: Not Used Paresthesia: None Procedure Tolerated: No Complications and Patient tolerated well Procedure Outcome: Successful Performed By: Marcus Rivas
[2021-09-27] MEDS: Ondansetron 4 MG/2 ML VIAL IVP (11:49)
--- NOTE | 2021-09-27 12:32 | W.ANESPOSTOP ---
Postoperative Evaluation Date, Time and Location Date Performed: 09/27/21 Time Performed: 12:33 Patient Location: Day Surgery Unit (214) Vital Signs Most Recent Imported Vital Signs: Most Recent Vital Signs Temp Pulse Resp BP Pulse Ox 36.1 C L 49 L 16 148/71 H 97 09/27/21 12:19 09/27/21 12:19 09/27/21 12:19 09/27/21 12:19 09/27/21 12:19 Most Recent Manually Entered Vital Signs: Adult Blood Pressure: 141/75 Heart Rate: 62 Respirations: 10 Oxygen Saturation (%): 99 Temperature (C): 36.4 C Pain Score (0-10 Scale): 3 Pain Score Most Recent Pain Score: Most Recent Pain Score Pain Level 3 09/27/21 12:19 Assessment Mental Status: Awake (Alert & Oriented to Patient Baseline) Airway and Respiratory Function: Patent airway with normal (patient baseline) respiratory exam Cardiovascular Function: Hemodynamically Stable Hydration Status: Adequately Hydrated Nausea & Vomiting: Active Nausea or Vomiting Present Nausea and Vomiting Management: Other (Eating saltines and drinking ice water) Pain: Pain is tolerable per patient Peripheral Nerve Block: Regional nerve block not resolved at time of post operative discharge
[2021-09-27] MEDS: Meclizine 25 MG TAB PO ×2 (13:39→17:50)
[2021-09-27] MEDS: Normal Saline Flush 10 ML SYR IV ×4 (14:09→23:14)
[2021-09-27] MEDS: Droperidol 5 MG/2 ML VIAL 0.625 MG IVP ×2 (14:10→14:35)
--- NOTE | 2021-09-27 14:55 | ROE_ITS ---
Date of service: 09/27/21 Time of Service: 10:45 Operative Note Operative Note DATE OF PROCEDURE: 09/27/21 PRE-OP DIAGNOSIS: Right Knee Osteoarthritis POST-OP DIAGNOSIS: same PROCEDURE: Right Total Knee Replacement SURGEON: Giovanny Ravi PLYWOOD SCARFER TENDER: Fernanda Zarate ANESTHESIA TYPE: Spinal Refer to Anesthesia Record ESTIMATED BLOOD LOSS: 200 PATHOLOGY: none sent TOURNIQUET TIME: 0 COMPLICATIONS: None Patient was transported to: PACU Patient's condition: stable Implants: 1. Depuy Attune Cementless Cruciate Retaining Femoral Component, Size 5 2. Depuy Attune Cementless Rotating Platform Tibial Component, Size 5 3. Depuy Attune 5x8 CR/RP Poly 4. Depuy Attune Patellar Component, Size 35 Indications: I have seen Barbie in clinic for symptoms of knee arthritis, confirmed with radiographic findings. She has exhausted nonoperative methods and was having significant limitations in daily function and desired better function and less pain. I discussed the technical details of a knee replacement. I explained the risks of the procedure to include, but not limited to, bleeding, infection, pain, stiffness, fracture, damage to nerves and vessels, damage to muscles and tendons, loosening, need for repeat procedure, blood clot and cardiopulmonary demise. Despite these risks, Barbie elected to proceed. Findings: There was significant signs of arthritis throughout the knee. Procedure Description: Barbie was greeted in the preoperative holding area where the correct side was identified and marked. The consent was reviewed with the patient and signed. The history and physical was updated. All questions were answered. Preoperative medications were administered: Acetaminophen 1000mg, Celebrex 400mg, and Gabapentin 300mg. An adductor canal block was then administered by the anesthesia team in the PACU. Barbie was taken back to the operating room. A spinal anesthestic was then administered. The patient was placed into the supine position on the operating room table. A nonsterile tourniquet was placed high onto the leg but only used for cementing. Posts were placed for positioning during the procedure. All bony prominences were well padded. Prophylactic antibiotics in the form of Cefazolin were administered. 1g of Tranxemic Acid was given intravenously within 30 minutes of incision. The right leg was then prepped wi th Chloraprep and draped in a standard fashion with impervious stockinette. A second prep with Chloraprep was performed prior to application of Iodine impregnated skin protection. A timeout to confirm correct identity, side and site, procedure, allergies, anesthesia, and medical concerns was performed. With the knee in some flexion, a midline incision was made overlying the knee. Full thickness skin flaps were raised once the extensor mechanism was encountered. These were raised medially and laterally. Any bleeding was controlled with electrocautery. Once the extensor mechanism was fully exposed, a medial parapatellar arthrotomy was performed in a flexed position. All bleeding from the arthrotomy and the geniculate arteries was coagulated. A medial subperiosteal peel was performed with electrocautery to the midcoronal plane. The fat pad was removed while keeping the patellar tendon protected. The anterior distal femur synovium was removed for later visualization. The ACL and PCL were resected and the anterior horn of the lateral meniscus was transected. The knee was then flexed with the patella everted. Large osteophytes from the tibia were removed. Large osteophytes from the femur were removed. Using a step drill, and based on preoperative templating, the femoral canal was entered. This was done with a step drill without any difficulty. The intramedullary distal femoral cut guide was inserted, set to a 6 degree valgus cut and 9mm cut thickness. The distal femoral cut guide was then held in position and pinned. With the soft tissues protected, the distal cut was performed. This was passed over a few times to ensure a planar cut. I then turned attention to the tibia. The extramedullary guide was placed onto the leg. The distal aspect was slid medial to adjust for position of center of ankle and stay in line with shaft of the tibia. Approximately 3-5 degrees of posterior slope was kept in the proximal cutting guide. The center of the guide was aligned with the PCL. The stylus was used to assess cut thickness. The medial side, most involved side, was set for a 4mm cut. This was then held in position and pinned into place with 2 additional pins and a cross pin for stability. The medial and lateral collateral ligaments were protected and the cut was performed. With this completed, it was assessed and noted to be of appropriate dimensions. The guide was removed. A spacer block was inserted and the knee was brought into extension. The 8mm spacer block provided full extension, without hyperextension and with stability of both the medial and lateral collateral ligaments was assessed. The pins from the femur and the tibia were then removed. The distal femur was then sized. The anterior stylus was placed onto the latera l ridge of the anterior femur. This indicated a size 5 femur. The external rotation of the guide was adjusted to 5 degrees to match the epicondylar axis, perpendicular to [place]s line. The 4-in-1 cutting guide was the placed. The posterior medial femur cut was evaluated and appeared of good thickness. The spacer block was inserted underneath the cutting guide and stability was confirmed in 90 degrees of flexion. An fawn wing was used to confirm appropriate position of the anterior cut to avoid notching. This cutting guide was ensured to be flush on the cut surface and then pinned into place with headed pins. While protecting the soft tissues, quad tendon, and collateral ligaments, the anterior and posterior cuts were performed with a saw. The central two pins were removed and the posterior and anterior chamfers were cut next. The notch-cutting guide was placed. This was pinned to lateralize the femoral component as much as possible while keeping it flush on the cut surface. This was then pinned into position. A reciprocating saw was used to make the notch cut. A rasp smoothed the cut surfaces. The medial and lateral menisci were removed. A trial femoral component was then inserted, impacted down to the cut surfaces, and the lug holes were drilled. A provisional trial tibial component was placed and the knee was brought through range of motion. There was noted to be excellent extension and flexion. There was no significant instability. The patella was tracking without thumbs. A size 8mm polyethylene component provided the best range of motion and stability with less than 2mm gapping with medial and lateral stress and full extension without significant hyperextension. The tibial cut surface was fully exposed. The tibia was then sized as a 5. The tibia had been previously marked during trialing to correspond to the center of the tibial component to help with rotation. The trial was aligned to this keiko, approximately rotated to the medial 1/3rd of the tibial tubercle. The trial was pinned into place. The tibia was prepared with a reamer and a keel punch and lug holes. The knee was then brought into extension and the patella was measured as 24mm. Using the patellar clamp and cut guide, this was resected to a flat surface with at least 13mm of thickness remaining. The size 35 patella fit the best. This was oriented and then clamped into position. The lugs were drilled. The trial components were removed. The final components were opened on the back table. The periosteal and capsular tissues, especially posteriorly, around the knee were then systematically injected with a periarticular cocktail consisting of 246mg of Ropivacaine, 0.5mg of Epinephrine, 0.08mg of Clonidine, and 30mg of Ketorolac, diluted to 100cc. On the back table, with the implants opened, the cement was mixed. One batch of high viscosity cement was prepared with vacuum assistance. After the cement was ready a small amount was placed on the cut surface of the patella and the patellar button was clamped into position and held. While the cement was hardening, the cementless knee components were placed. Starting with the tibial component, the tibia was subluxed anteriorly and the lug holes of the component were lined up. The tibia was then impacted with an impactor and mallet until the tibial component was in contact with the tibia. The final polyethylene component was inserted. Then, the femoral component was inserted. The lug holes were aligned and the component was impacted into position. The knee was irrigated with Surgiphor Betadine solution. This was allowed to sit in the knee for 3 minutes and then it was irrigated out with saline. After the cement had finally cured, approximately 15min, the clamp was removed from the patella and the knee was taken through range of motion. The patella was tracking with a no-thumbs technique. The capsule was then reapproximated with a No. 1 Vicryl at multiple locations. The capsule was finally closed with a No. 2 Stratafix, barbed suture. The second dosing of 1g TXA was started. Deep tissues were then reapproximated with 0 Vicryl and 2-0 Vicryl. The skin was closed with a running 3-0 Monocryl in a subcuticular fashion. This was reinforced with skin glue. A Mepilex silver dressing was applied along with a [id number] JOHANNA wrap. A CryoCuff was applied. Barbie was transferred to the hospital bed without difficulty an suffering no apparent complication. She has a good prognosis. Physical therapy will start today and without restrictions, weight-bearing as tolerated. Her home dosing of Aspirin, 650mg daily, will be used for DVT prophylaxis.
--- NOTE | 2021-09-27 16:08 | IN_ITS ---
Date of service: 09/27/21 Time of Service: 16:08 PT Notes Visit Reasons: Right TKA Physical Therapy Day Surgery Initial Evaluation Date: 09/27/2021 Referring Doctor: LOULOU Boyle PT Orders: PT CONSULT: S/P Ortho surgery Precautions: WBAT on right LE with AD. Patient Profile/Admitting Diagnosis: Barbie is a 71-year-old female with primary osteoarthritis of the right knee and is status post right total knee arthroplasty on postoperative day 0. PMHX: Medical History?(Updated 06/24/21 @ 10:13 by LOULOU Lan) Depressed bipolar I disorder Esophagitis Hepatitis C 15 months of interferon, no longer postive for hep c per pt. 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 Abdominal hernia repair Abdominal hysterectomy (~2000) Pt. states she did not have this done,pt. states she has had a fallopian tube and one ovaryBunionectomy 04/13/17; DR. NORMAN Colonoscopy - MAC 06/09/13; TUBULAR ADENOMAEGD - MAC (04/26/16) [place]25[place] [facility] [place] DECOMPRESSION AND FUSIONHx of section x 2 Social History/Home Situation: Lives alone in a praivate home with 4 steps to enter with rails on B sides. Her bedroom is on the second floor of the house. Independent with all aspects of ADLs prior to surgery. Equipment Owned/DME: None Subjective: Agreeable to PT consult. Complains of severe nausea that worsens with movement which she states comes on when she has not taken her Meclizine. Reports that Nurse tried to give her Meclizine earlier but she vomited pill out due to worsening nausea. Was having a hard time staying focused and alert during mobility assessment, frequently requesting to sit down due to increasing nausea. Finally needed to lie back down due to exhaustion and feeling of not being able to hold herslef up. Objective: General Observation: Patient in some distress. Level of alertness decreased. Unable to keep eyes open. Mental Status: Had a hard time staying awake and alert Pain: 4-5/10 in the R knee with weight bearing ROM: Right Lower Extremity: Hip flexion WFL. Hip abduction WFL. Knee flexion 20 degrees to 90 degrees. Knee extension -20 degrees. Ankle dorsiflexion WFL. Ankle plantarflexion WFL. Left Lower Extremity: Hip flexion WFL. Hip abduction WFL. Knee flexion WFL. Ankle dorsiflexion WFL. Ankle plantarflexion WFL. Strength: Right Lower Extremity: Hip flexors 4/5. Hip abductors 4/5. Knee flexors 3-/5. Knee extensors 3-/5. Ankle dorsiflexors 4/5. Ankle plantarflexors 5/5. Left Lower Extremity:Hip flexors 5/5. Hip abductors 5/5. Knee flexors 5/5. Knee extensors 5/5. Ankle dorsiflexors 5/5. Ankle plantarflexors 5/5. Sensation: Has awareness of pain sensation Bed Mobility/Transfers: Supine to sit contact guard assist Sit to stand minimal assist Stand to sit minimal assist Bed to chair minimal assist Gait: Only tolerated up to 50 feet on level surface ambulation and requested to sit down 3 times onto chair due to worsening nausea. Unable to hold self up safely even with walker. Balance: Static Sitting: Good Dynamic Sitting: Fair Static Standing: Fair Dynamic Standing: Poor Special Tests: Mobility Limitations Standardized Measure [facility] AM-PAC 6 clicks Basic Mobility Inpatient Short Form: Raw Score: 12 CMS Score: 69% deficit Informed Consent/Education: Patient instructed in purpose of PT consult. Packet containing [] exercise protocol has been given to patient. Education and training on initial set of exercises that can be done at home have been completed with patient. Assessment: Will have nobody tonight to help her out at home. Unsafe to go home tonight due to worseingn nausea, decreased level of alertness and lack of full pain control. Patient has had seeral falls in the past year and will benefit from an overnight stay or two to achieve restabilization from postoperative status. Will reach out to orthopedic surgeon regarding safety concerns about going home. Patient presents with clinical signs and symptoms consistent with current/admitting diagnoses that have resulted to mobility limitations, gait instability, generalized weakness, and impairment of motor control as demonstrated by the following impairment level findings: 1. Decreased strength to rightknee major muscle groups 2. Impaired standing balance 3. Limitation of joint range of motion in right knee Impairments are contributing to the following functional limitations: 1. Inability to safely ambulate without assistive device 2. Increase completion time for mobility ADL performance 3. Increased fall risk Patient is assessed as a 60643 moderate complexity based on the following: History: 71-year-old female with impairment level findings, functional limitations, and past medical history as indicated above Examination: Demonstrable impairment in strength, balance, and mobility level with underlying impairments and functional limitations as documented above Presentation: Evolving Decision Makin moderate complaexity Goals: N/A. PT evaluation and 1-2 treatment sessions only for functional mobility training using recommended AD and for HEP instruction. Plan of Care/Treatment Plan: N/A. PT evaluation and 1-2 treatment session only for functional mobility training using recommended AD and for HEP instruction. DISCHARGE RECOMMENDATIONS: Admit to MedSur unit for continued observation and further mobility re- assessment by PT prior to discharge. TREATMENT CODE/TIME: 78415 x 20 minutes, 43133 x 17 minutes beginning at 16:08 PM. Thank you for the opportunity to participate in the care of this patient. Lynda Ferrara PT, DPT, CLT [facility] [place], [place]
[2021-09-27] MEDS: ceFAZolin 1 GM/50 ML BAG IVPB ×2 (17:50→23:15)
[2021-09-27] MEDS: Atorvastatin 40 MG TAB PO (19:45)
[2021-09-27] MEDS: Celecoxib 200 MG CAP PO (19:45)
[2021-09-27] MEDS: Aspirin E.C. 81 MG TABEC PO (19:45)
[2021-09-27] MEDS: lamoTRIgine 100 MG TAB 250 MG PO (23:12)
[2021-09-27] MEDS: Omeprazole 20 MG CAPCR 40 MG PO (23:13)
[2021-09-28 03:40] VITALS: BP 130/70; PULSE 58; RESP 16; TEMP 36.7; O2SAT 97
[2021-09-28] MEDS: Acetaminophen 500 MG TAB 1000 MG PO (07:44)
[2021-09-28] MEDS: Aspirin 325 MG TAB 650 MG PO (07:44)
[2021-09-28] MEDS: Aspirin E.C. 81 MG TABEC PO (07:44)
[2021-09-28] MEDS: metFORMIN 500 MG TAB PO (07:45)
[2021-09-28] MEDS: Normal Saline Flush 10 ML SYR IV (07:45)
[2021-09-28] MEDS: ceFAZolin 1 GM/50 ML BAG IVPB (07:45)
[2021-09-28] MEDS: Celecoxib 200 MG CAP PO (07:45)
[2021-09-28 08:17] VITALS: BP 100/61; PULSE 70; RESP 18; TEMP 37.3; O2SAT 97
--- NOTE | 2021-09-28 09:28 | PDOC.CMIN ---
- If Service Date Differs Date of service: 09/28/21 Time of Service: 09:28 Care Management Initial Assess REASON FOR HOSPITALIZATION:: Right TKA
--- NOTE | 2021-09-28 09:40 | IN_ITS ---
Date of service: 09/28/21 Time of Service: 09:40 PT Notes Visit Reasons: Right TKA Physical Therapy Inpatient Initial Evaluation Date: 09/28/2021? Referring Doctor: Giovanny Ravi MD PT Orders: PT CONSULT: S/P Ortho surgery Precautions: WBAT on right LE with AD. Patient Profile/Admitting Diagnosis: Barbie is a 71-year-old female with primary osteoarthritis of the right knee and is status post right total knee arthroplasty on postoperative day 1. PMHX: Medical History?(Updated 06/24/21 @ 10:13 by LOULOU Lan) Depressed bipolar I disorder Esophagitis Hepatitis C 15 months of interferon, no longer postive for hep c per pt. 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 Abdominal hernia repair Abdominal hysterectomy (~2000) Pt. states she did not have this done,pt. states she has had a fallopian tube and one ovaryBunionectomy 04/13/17; DR. NORMAN Colonoscopy - MAC 06/09/13; TUBULAR ADENOMAEGD - MAC (04/26/16) Fusion of lumbar spine (~12/25/17) [facility] [place]L3-4 DECOMPRESSION AND FUSIONHx of section x 2 Social History/Home Situation: Lives alone in a praivate home with 4 steps to enter with rails on B sides.? Her bedroom is on the second floor of the house. Independent with all aspects of ADLs prior to surgery.? Equipment Owned/DME: Provided with [facility] at [facility] yesterday Subjective: Agreeable to PT consult.? Nausea resolved. Level of alertness back to baseline. Reports 1/10 pain in the R knee. Denies headache, chest pain, and lightheadedness throughout session. Objective: General Observation: In NAD.? Level of alertness intact.? Mental Status:?Alert and oriented x4 Pain: 1/10 in the R knee with weight bearing ROM: Right Lower Extremity: Hip flexion WFL. Hip abduction WFL. Knee flexion 20 degrees to 90 degrees.? Knee extension -20 degrees.? Ankle dorsiflexion WFL. Ankle plantarflexion WFL. Left Lower Extremity: Hip flexion WFL. Hip abduction WFL. Knee flexion WFL. Ankle dorsiflexion WFL. Ankle plantarflexion WFL. Strength: Right Lower Extremity: Hip flexors 4/5. Hip abductors 4/5. Knee flexors 3-/5. Knee extensors 3-/5. Ankle dorsiflexors 4/5. Ankle plantarflexors 5/5. Left Lower Extremity:Hip flexors 5/5. Hip abductors 5/5. Knee flexors 5/5. Knee extensors 5/5. Ankle dorsiflexors 5/5. Ankle plantarflexors 5/5. Sensation: Has awareness of pain sensation Bed Mobility/Transfers: Supine to sit independent Sit to stand independent Stand to sit independent Bed to chair independent Gait: 450 feet using front-wheeled walker with supervision. No LOB. No SOB. No nausea. STAIRS: Tolerated 6 x 4 inch steps and 4 x 6 inch steps while holding onto bilateral rails with step to gait pattern requiring only supervision assist. Balance: Static Sitting: Good Dynamic Sitting: Fair Static Standing: Fair Dynamic Standing: Poor Special Tests: Mobility Limitations Standardized Measure [facility] 6 clicks Basic Mobility Inpatient Short Form: Raw Score: 24 ? CMS Score: 0% deficit Informed Consent/Education:? Patient instructed in purpose of PT consult.? Education and training on initial set of exercises that can be done at home have been completed with patient. Assessment: Patient will require the use of a front wheel walker for all mobility ADL performance in order to facilitate independence and reduce fall risk at home.? Patient presents with clinical signs and symptoms consistent with current/admitting diagnoses that have resulted to mobility limitations, gait ins tability, generalized weakness, and impairment of motor control as demonstrated by the following impairment level findings: 1.? Decreased strength to right knee major muscle groups 2.? Impaired standing balance 3.? Limitation of joint range of motion in right knee Impairments are contributing to the following functional limitations: 1.? Inability to safely ambulate without assistive device 2.? Increase completion time for mobility ADL performance 3.? Increased fall risk Patient is assessed as a 47950 moderate complexity based on the following: History: 71-year-old female with impairment level findings, functional limitations, and past medical history as indicated above Examination: Demonstrable impairment in strength, balance, and mobility level with underlying impairments and functional limitations as documented above Presentation: Evolving Decision Makin moderate complaexity Goals: N/A.? PT evaluation and 1-2 treatment sessions only for functional mobility training using recommended AD and for HEP instruction. Plan of Care/Treatment Plan: N/A.? PT evaluation and 1-2 treatment session only for functional mobility training using recommended AD and for HEP instruction. DISCHARGE RECOMMENDATIONS: [] Home with no services [] [] Home with services [specify] [X] Home with outpatient PT. Home when medically cleared by orthopedic surgeon. Will benefit from outpatient PT services monitor facilitate independence with all mobility ADL performance in the community without an assistive device. [] SNF for continued rehabilitation [] [] [facility] [] [] SNF versus LTC based on ability to participate and progress [] DISCHARGE RECOMMENDATIONS: TREATMENT CODE/TIME: 19161 x 20 minutes,? 82030 x 14 minutes beginning at 9:40 AM. Thank you for the opportunity to participate in the care of this patient. Lynda Ferrara PT, DPT, CLT [facility] [place], [place]
--- NOTE | 2021-09-28 11:05 | DSE_ITS ---
Date of service: 09/28/21 Time of Service: 09:40 DS: Diagnosis Discharge Diagnosis (1) Primary osteoarthritis of right knee: Status: Acute Discharge Plan Disposition Patient Disposition: HOME Condition: Good Discharge Details Reason For Visit: Right TKA Admit Date/Time: 09/27/21 07:33 Admit Provider: Giovanny Ravi Attending Provider: Giovanny Ravi Primary Care Provider: Asif Elam Hospital Course Hospital Course: Patient was admitted to the medical/surgical floor following the procedure. The surgery was tolerated well without any notable medical, surgical, or anesthetic complications however she did have some persistent dizziness and nausea following the surgery. She does have some dizziness at baseline. Mobilization began postoperatively. She was voiding spontaneously. The dizziness improved overnight. Vitals were stable. Physical therapy worked with the patient and was cleared for discharge home. No acute medical issues. Pain was controlled on oral regimen. Home Meds and New Rx's Prescriptions: New celecoxib [Celebrex] 200 mg capsule 200 mg PO BID Qty: 60 0RF gabapentin 300 mg capsule 300 mg PO QHS Qty: 14 0RF acetaminophen 500 mg capsule 1,000 mg PO Q8H PRN PRNQty: 90 0RF oxycodone 5 mg tablet 5 mg PO Q4H PRNQty: 18 0RF ondansetron 4 mg tablet,disintegrating 4 mg PO Q8H PRNQty: 10 0RF Continued Shingrix Adjuvant Component-PF Suspension 0.5 ml IM DAILY Qty: 0.5 1RF Label Comments: pt. reports she did receive about a year ago Rx Instructions: given 2nd dose 2-6 months after first trazodone 100 mg tablet 100 mg PO HS PRN Qty: 90 3RF Rx Instructions: [facility] [place] PreserVision AREDS-2 1 EACH capsule 1 ea PO BID meclizine 25 mg tablet 25 mg PO TID PRN (Reason: dizziness) Qty: 30 3RF atorvastatin [Lipitor] 40 mg tablet 40 mg PO QPM Qty: 90 3RF metformin 500 mg tablet 500 mg PO DAILY aspirin 325 mg Tablet 650 mg PO DAILY omeprazole 40 mg capsule,delayed release(DR/EC) 40 mg PO HS lamotrigine 100 mg tablet 250 mg PO HS Rx Instructions: [facility] [place] Discharge Instructions Additional Instructions: Total Knee Discharge Instructions Activity: The most important activity is to walk. You should try to take short walks a few times a day. It is important that when resting you work on keeping the knee straight. Avoid putting a pillow behind the knee as this will encourag e flexion. Work on range of motion exercises as provided by Physical Therapy. If you have the [employer] bike coming, this will be your primary tool for exercise after the knee replacement. You should use it and follow the directions for the knee. Utilize the other exercises sparingly based on your symptoms. - Start outpatient physical therapy within 2 weeks. - You should wear the JG hose on both legs for 2 weeks. You may remove these at night. You may also use any compression sock in place of the JG hose. - Utilize [employer] to review exercises, see videos on exercises and obtain basic information pertaining to your surgery and your recovery. Dressing: Remove the Gary wrap by 2 days after your surgery and put on the JG stocking given to you from the hospital. Keep the surgical dressing (underneath the GARY wrap) in place for at least one week. After the first week it may be removed and replaced with light gauze and tape or nothing. The wound and dressing may get wet after 3 days but avoid soaking the dressing or otherwise it will need to be changed. Many people prefer covering the dressing with cling wrap (saran wrap) to minimize it from getting soaked. If it gets wet, just pat dry. If it starts to peel off then it will need to be changed. Medications: - You should take Tylenol and anti-inflammatory Celebrex as your primary pain control medications. If the Celebrex is too expensive or not covered, please call the office for another alternative (Advil/Ibuprofen or Naproxen/Aleve) - You have been prescribed a stronger pain medication Oxycodone for breakthrough pain, take as needed as prescribed. - Continue with your stomach acid reduction agent Omeprazole to help reduce stomach acid and reflux. - You have been prescribed Gabapentin to take at night for restlessness and nerve pain. - Continue taking 325mg for DVT prevention unless instructed otherwise. - If you have constipation you should take Colace or Miralax (both [id number]). It takes most people 3-4 days to have a bowel movement. Follow-up: 2 weeks If you have any acute concerns or questions, please do not hesitate to contact the office at [phone]. You may contact Dr. Ravi with any questions after hours through the hospital at [phone] or on his cell phone at [phone]. Stand Alone Forms: Anesthesia Discharge InstRadha, Nerve Block Instructions, Rony Haq (DSU) Referrals: Giovanny Ravi MD [ [facility] STAFF PHYSICIAN] - Activity:: Activity as Tolerated Equipment/Supplies:: Walker Diet:: As Tolerated Discharge Orders Discharge Orders: Discharge Order (Routine); Ordered 09/28/21 Ordered By: Giovanny Ravi DS: Summary Time Spent with Patient providing and/or coordinating discharge services: Less than 30 minutes Status at Discharge Functional status at discharge: uses cane/walker Overall status at discharge: patient is progressing back to baseline Mental Status: mental status grossly normal Speech and Movement: speech and movement normal Mood: congruent mood Affect: normal affect Exam Extrem Other: Sitting upright on the edge of the bed. No acute distress. Alert and orient x3. Evaluation of the right leg shows no significant swelling. Dressing is clean dry and intact. Straight leg raise is intact. She has active ankle dorsiflexion and plantarflexion as well as great toe extension and flexion. Sensation intact light touch of the deep and superficial peroneal nerve and tibial nerve. Psych Mental Status: mental status grossly normal Speech and Movement: speech and movement normal Mood: congruent mood Affect: normal affect DS: Data Vitals/I&O Vitals and I&O: Vital Signs Temperature 37.3 C 09/28/21 08:17 Temperature Source Tympanic 09/28/21 08:17 Pulse 70 09/28/21 08:17 Pulse Rhythm Regular 09/28/21 07:54 Respiratory Rate 18 09/28/21 08:17 Respiratory Effort 09/28/21 07:54 Respiratory Depth Normal 09/28/21 07:54 Respiratory Pattern Normal 09/28/21 07:54 Blood Pressure 100/61 09/28/21 08:17 Blood Pressure Mean 110 09/27/21 08:56 Blood Pressure Position Sitting 09/27/21 08:56 Pulse Oximetry 97 09/28/21 08:17 Respiratory End-tidal CO2 39 09/27/21 12:04 Oxygen Delivery Method Room Air 09/28/21 08:17 Oxygen Flow Rate 0 09/28/21 08:17 Pain Level 0 07/20/22 08:17 Comment 09/27/21 08:56 Intake & Output 09/27/21 09/27/21 09/28/21 11:59 23:59 11:59 Intake Total 860.000 / 1240.000 380 / 1240.000 370 / 370 Output Total 200 / 1350 1150 / 1350 400 / 400 Balance 660.000 / -110.000 -770 / -110.000 -30 / -30 Weight 72 kg Intake: IV 860.000 / 1240.000 380 / 1240.000 Oral 370 / 370 Output: Urine 900 / 900 400 / 400 Emesis 250 / 250 Estimated Blood Loss 200 / 200 Other: Urine Color Light Juli Straw Urine Appearance Clear Clear Urine Odor Normal Normal Comment voided moderate amount of urine in toilet pT stated that she had voided at 6:00 this morning. She is also going in now to void. 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 Bran NGUYEN; TUBULAR ADENOMA Right carpal tunnel syndrome (Acute 09/19/17) Spinal stenosis of lumbar region with neurogenic claudication (Acute 11/09/17) cleared for surgery on low back reassured about neck node--will follow TMJ syndrome (Acute 03/25/15) Ulnar neuropathy at elbow of left upper extremity (Acute 03/28/17) Left hand weakness (Acute 01/11/17) Meniere syndrome (Chronic) see ENT as arranged Back pain (Chronic) Tendinitis of left rotator cuff (Acute) Status post hernia repair (Acute) Sepsis due to Staphylococcus (Acute) Calculus of kidney (Acute 08/27/15) Hyperglycemia (Acute) Neck pain (Acute) Cervical spine degeneration (Acute) Risk for coronary artery disease between 10% and 20% in next 10 years (Acute) Primary osteoarthritis of right knee (Acute) Steroid injection: 06/24/2021 Medical History Anesthesia History of Anti-K blood per pt. Depressed bipolar I disorder Esophagitis Hepatitis C 15 monthes of interferon, no longer postive for hep c per pt. History of alcoholism Hyperlipidemia Left carpal tunnel syndrome Left hand weakness Low back pain with sciatica Necrotizing fasciitis in abdomen, 2004 Numbness and tingling in left arm Polyp of colon Renal stones Right carpal tunnel syndrome Staphylococcal sepsis TMJ syndrome Trigger finger of right thumb Ulnar neuropathy at elbow of left upper extremity Vertigo Recommend premedication with Scopolamine for nausea as pt takes Meclizine 2- 3/week prn for frequent bouts of vertigo Surgical History abdominal hernia repair Abdominal hysterectomy (~2000) Pt. states she did not have this done,pt. states she has had a fallopian tube and one ovary Bunionectomy 04/13/17; DR. NORMAN Colonoscopy - MAC 06/09/13; TUBULAR ADENOMA EGD - MAC (04/26/16) Fusion of lumbar spine (~12/25/17) [facility] [place];L3-4 DECOMPRESSION AND FUSION H/O carpal tunnel repair left H/O toe surgery Dr. Faulkner, removed part of great toe d/t osteoarthritis per pt Hx of section x 2 S/P trigger finger release Right thumb, 3 digits left hand Status post unilateral salpingo-oophorectomy Family History Mother , age 94 Stroke Father , ANEURYSM at age 64. Alcohol abuse Heart disease Sister , age 62 Substance abuse Heart disease Sister Breast cancer Brother MS (multiple sclerosis) Maternal Grandfather Heart disease Paternal Grandfather Aneurysm Maternal Grandmother Parkinsons disease Son No problems noted. Son No problems noted. Son No problems noted. Daughter No problems noted. Social History Smoking/Tobacco Use Status: Never Second Hand Exposure: Yes Smoking risk assessment performed?: Yes Alcohol Intake: former Drug use: Current Sobriety Substance use type: does not use Details: 33 years since alcohol intake Caregiver/Support person: No Household members: none Housing: house Communication Needs: None Do you need help understanding health information?: Rarely Pets and animals: No Sexually active: No Do you think of yourself as: straight/heterosexual Current gender identity: female What is your relationship status?: How often do you talk on the phone with friends or family?: three or more times per week How often do you get together with friends or relatives?: once per week How often do you attend tenriism or taoist services?: 1-3 times per year Do you belong to any clubs or organized social groups?: yes Panel score (0-1 are the most socially isolated patients): 2 What type of physical activity do you participate in: walking Duration: 30-45 minutes/day Frequency: daily Debora/Sikhism: Unitarian Universalist Special debora needs: No Seatbelt use: always Helmet use: Yes Helmet use: sometimes Drive intox or ride w/intox stake driver: No Do you feel safe at home: Yes Additional Social history: lives alone
== END 2021-09-28 12:17 | disposition home or self-care (01) ==
LOC: SUR 13:00 → MS 09-28 08:20
PROVIDERS: Admitting Provider Student in an Organized Health Care Education/Training Program; PCP Family Medicine; Visit Provider Student in an Organized Health Care Education/Training Program
PROC: (CPT 27447; principal; 2021-09-27 09:45)
DX: M17.11 Unilateral primary osteoarthritis, right knee (principal); F31.9 Bipolar disorder, unspecified; E78.5 Hyperlipidemia, unspecified; M54.40 Lumbago with sciatica, unspecified side; K21.9 Gastro-esophageal reflux disease without esophagitis; R73.9 Hyperglycemia, unspecified; Z86.73 Personal history of transient ischemic attack (TIA), and cerebral infarction without residual deficits; Z79.82 Long term (current) use of aspirin
CPT/HCPCS: 27447; C1776; 76942; 96365; 97162; 97530; G0378; J0690; J1100; J1790; J1885; J2250; J2405; J2704

== ENCOUNTER 2021-10-14 09:14 | Outpatient (CLI) | payer MEDICARE, SELFPAY ==
--- NOTE | 2021-10-14 08:45 | DI.RAD_ITS ---
Exam(s) XR KNEE RT 1V XR STANDING ALIGNMENT EXAM: XR STANDING ALIGNMENT and XR knee RT 1 V CLINICAL HISTORY: 1ST POST OP R TKA. TECHNIQUE: 2D digital imaging was performed. Images were obtained. COMPARISON: CR XR STANDING ALIGNMENT from 09/15/2021 CR XR KNEE RT 1V from 10/14/2021 FINDINGS: BONES: The hips are well maintained. Since the prior examination the patient has undergone a right t otal knee replacement. The orthopedic hardware appears in good position. Mild degenerative changes are seen in the left knee with joint space narrowing and periarticular spurring present. The ankles are well maintained.There is no significant leg length discrepancy. SOFT TISSUE: Normal. IMPRESSION: 1. Status post right TKR. 2. Mild degenerative changes in the left knee. DATA REPOSITORY: RADIATION DOSE DELIVERED:
== END 2021-10-14 09:15 | disposition home or self-care (01) ==
LOC: DIORS 09:16
PROVIDERS: PCP Family Medicine; Referring Provider Family Medicine; Visit Provider Student in an Organized Health Care Education/Training Program
DX: Z96.651 Presence of right artificial knee joint (principal); Z47.1 Aftercare following joint replacement surgery
CPT/HCPCS: 73560; 77073

== ENCOUNTER → 2021-12-05 10:02 | Outpatient (BNVA) | payer MEDICARE, SELFPAY | PROVIDERS: PCP Family Medicine; Referring Provider Family Medicine; Visit Provider Physician Assistant Surgical | DX: Z47.1 Aftercare following joint replacement surgery (principal); Z96.651 Presence of right artificial knee joint ==

== ENCOUNTER 2022-09-01 01:15 | Outpatient (CLI) | payer MEDICARE, SELFPAY ==
[2022-09-01 13:15] LABS: Hemoglobin A1C 5.5 % (<5.7)
[2022-09-01 13:34] LABS: BUN 16 mg/dL (7-18); CREATININE 0.8 mg/dL (0.55-1.02); Calcium 9.5 mg/dL (8.5-10.1); Calculated LDL 96 mg/dL (<100); Chloride 107 mmol/L (98-107); Cholesterol 183 mg/dL (<200); Estimated GFR 79.22 (mL/min/1.73m2); Glucose 105 mg/dL (74-106); HDL Cholesterol 54 mg/dL (40-60); Potassium 4.2 mmol/L (3.5-5.1); Sodium 145 mmol/L (136-145); Triglyceride 165 mg/dL (<150); Vitamin B12 573 pg/mL (193-986)
[2022-09-05 12:47] LABS: Lamotrigine 9.4 mcg/mL (3.0-15.0)
== END 2022-09-01 01:16 | disposition home or self-care (01) ==
LOC: LOS 01:15
PROVIDERS: PCP Family Medicine; Visit Provider Family Medicine
DX: D64.9 Anemia, unspecified (principal); E11.51 Type 2 diabetes mellitus with diabetic peripheral angiopathy without gangrene; E87.1 Hypo-osmolality and hyponatremia; E78.5 Hyperlipidemia, unspecified; G40.909 Epilepsy, unspecified, not intractable, without status epilepticus; R20.0 Anesthesia of skin; Z79.899 Other long term (current) drug therapy
CPT/HCPCS: 36415; 80048; 80061; 80175; 82607; 83036

== ENCOUNTER 2022-11-03 10:20 | Outpatient (CLI) | payer MEDICARE, SELFPAY ==
--- NOTE | 2022-11-03 11:21 | DI.RAD_ITS ---
Exam(s) XR KNEE RT 2V AP,LAT EXAM: XR KNEE RT 2V AP,LAT CLINICAL HISTORY: ANNUAL F/U R TKA. TECHNIQUE: 2D digital imaging was performed. Images were obtained. AP, lateral and oblique views w ere obtained. COMPARISON: CR XR KNEE RT 3V AP,LAT,SHEREE from 06/24/2021 CR XR KNEE RT 1V from 10/14/2021 FINDINGS: BONES: There are stable post operative changes present. No fracture or dislocation. JOINTS: The orthopedic hardware is in good position. No evidence of hardware loosening. SOFT TISSUE: Normal. IMPRESSION: Stable postoperative changes. DATA REPOSITORY: RADIATION DOSE DELIVERED:
== END 2022-11-03 10:21 | disposition home or self-care (01) ==
LOC: DIORS 10:20
PROVIDERS: PCP Family Medicine; Referring Provider Family Medicine; Visit Provider Student in an Organized Health Care Education/Training Program
DX: Z47.1 Aftercare following joint replacement surgery (principal); M21.611 Bunion of right foot; Z96.651 Presence of right artificial knee joint
CPT/HCPCS: 99213; 73560

== ENCOUNTER → 2023-05-04 00:22 | Outpatient (CLI) | payer MEDICARE, SELFPAY ==
--- NOTE | 2023-05-04 10:44 | DI.RAD_ITS ---
Exam(s) RF BARIUM SWALLOW EXAM: RF BARIUM SWALLOW CLINICAL HISTORY: trouble swallowing,dysphagia,r13.10 TECHNIQUE: 2D and realtime digital imaging was performed. CONTRAST MATERIAL: Oral barium contrast was administered. COMPARISON: No exams were available for comparison FINDINGS: CHEST X-RAY: The heart and pulmonary vasculature are within normal limits. The lungs are clear. No pl eural effusion or pneumothorax is present. The bones are within normal limits for the patient's age. ESOPHAGRAM: The esophagus is patent with no evidence for erosions, fold thickening, strictures, or ma sses. With regards to the motility, there is a normal primary stripping wave. No tertiary contraction s were noted. There is a small hiatal hernia. No gastroesophageal reflux is identified during the ex amination. The patient swallowed a barium tablet without difficulty. IMPRESSION: Small hiatal hernia. Otherwise, unremarkable examination. RADIATION DOSE DELIVERED: eleonora Gonzalez=19.4 mGy
[2023-05-04] MEDS: Barium Sulfate 700 MG TAB PO (10:45)
[2023-05-04] MEDS: Barium Sulfate 98% W/W 140 ML BTL 100 ML PO (10:46)
[2023-05-04] MEDS: Simethicone/Sod Bicarb/Cit Ac, 4 gram PACKET 1 PACKET PO (10:46)
[2023-05-04] MEDS: Barium Sulfate 60% W/V 355 ML BTL 175 ML PO (10:47)
== END ==
PROVIDERS: PCP Family Medicine; Visit Provider Family Medicine
DX: R13.10 Dysphagia, unspecified (principal); K44.9 Diaphragmatic hernia without obstruction or gangrene
CPT/HCPCS: 74221; J3490

== ENCOUNTER → 2023-06-06 08:53 | Outpatient (BNVA) | payer MEDICARE, SELFPAY | PROVIDERS: PCP Family Medicine; Referring Provider Family Medicine; Visit Provider Surgery | DX: K21.9 Gastro-esophageal reflux disease without esophagitis (principal); R13.10 Dysphagia, unspecified; Z12.11 Encounter for screening for malignant neoplasm of colon | CPT/HCPCS: 99213 ==

== ENCOUNTER 2023-06-11 09:38 | Day surgery (SDC) | payer MEDICARE, SELFPAY ==
--- NOTE | 2023-06-10 14:39 | PDOC.DSDIS_ITS ---
Date of service: 06/11/23 Time of Service: 11:44 Discharge Plan Disposition Patient Disposition: Home Condition: Good Discharge Details Reason For Visit: EGD and colonoscopy Attending Provider: Osman Howard Primary Care Provider: Asif Elam Home Meds and New Rx's Prescriptions: New sucralfate 1 gram tablet 1 g PO BID Qty: 60 0RF Continued lamotrigine 100 mg tablet 250 mg PO HS Qty: 225 3RF Rx Instructions: [facility] [place] atorvastatin [Lipitor] 40 mg tablet 40 mg PO QPM Qty: 90 3RF omeprazole 40 mg capsule,delayed release(DR/EC) 40 mg PO HS PRN (Reason: acid reflux) Qty: 90 3RF PreserVision AREDS-2 1 EACH capsule 1 ea PO BID lorazepam 1 mg tablet 1 mg PO DAILY PRN (Reason: flying anxiety) Qty: 5 0RF Rx Instructions: take 30 min before flight meclizine 25 mg tablet 25 mg PO TID PRN (Reason: dizziness) Qty: 30 3RF aspirin 325 mg Tablet 650 mg PO DAILY Discontinued bisacodyl 5 mg tablet,delayed release (DR/EC) 5 mg PO ONCE Qty: 4 0RF Rx Instructions: Per Colonoscopy bowel prep instructions polyethylene glycol 3350 17 gram/dose powder 238 g PO ONCE Qty: 238 0RF Rx Instructions: For Colonoscopy bowel prep, as directed by office Discharge Instructions Instructions: Peptic Ulcer (DC), Diverticulosis (GEN), Diet for Stomach Ulcers and Gastritis (GEN), Colorectal Polyps (GEN), Diverticulosis Diet (GEN) Additional Instructions: Jose R we were able to complete your endoscopies today without any difficulty. As we suspected beforehand, and as suggested by your swallow study, you do have a small sliding hiatal hernia. I am skeptical that this is causing any of your symptoms. You also have 2 stomach ulcers, and I think that increase stomach acid production is the most likely problem that you have been experiencing. I took some biopsies of the ulcers, as well as several areas of your stomach to see if I can help find any other explanation as to a cause, and potential treatment options. It will take about a week or 2 for me to get those results. In the meantime, I had like you to continue using omeprazole. I have also added a medication called sucralfate that you will take 2 times each day to help protect the stomach ulcers, and give them some time to heal. Your colonoscopy also went very smoothly. You have some diverticulosis, which are small weak spots in the muscular portion of the colon wall. I also found 1 polyp during the course of the procedure which I removed. Again, when I have all of the biopsy results, and the report from the polyp analysis, I will be in touch with my next recommendations. In the meantime, if you have any questions at all, please do not hesitate to call or ask at any time. 1. If tolerated, consume a soft, low fiber diet for 1-2 days. 2[address] Do not drive, drink alcohol, operate machinery, make critical decisions, or do activities that require coordination or balance for 24 hours. 3. Because air was put into your colon during the procedure, expelling air from your rectum (passing gas or farting) is normal. 4. You may not have a bowel movement for 1-3 days because of the colonoscopy prep. This is normal. 5. You may experience a sore throat for 24 to 48 hours. You may use throat lozenges or gargle with warm salt water to relieve the discomfort. 6. Because air was put into your stomach during the procedure, you may experience some belching. 7. Go directly to the emergency room if you notice any of the following: Develop chills (warm to touch), or if you have a thermometer and your temperature is above 101 Difficulty breathing or difficultly swallowing Persistent vomiting Severe abdominal pain, other than gas cramps Severe chest pain Black, tarry stools Any bleeding ? exceeding one tablespoon 8. Call your physician if the site where your intravenous was started becomes red, swollen, painful, and warm to touch. 9. Your physician has reviewed your pre-procedure medications. Please continue to take those medications as previously ordered. You will be given specific information/education regarding any changes to your medications before leaving. Activity:: Activity as Tolerated Diet:: As Tolerated Discharge Orders Discharge Orders: Discharge Order (Routine); Ordered 06/10/23 Ordered By: Osman Howard DS: Diagnosis Discharge Diagnosis (1) Dysphagia: Status: Acute Asessment and Plan: Follow-up on biopsy results
--- NOTE | 2023-06-10 14:40 | W.PM.ENDDOP ---
Date of service: 06/11/23 Time of Service: 11:48 Endoscopy Report DATE OF PROCEDURE: 06/11/23 PRE-OP DIAGNOSIS: Dysphagia and change in bowel habits POST-OP DIAGNOSIS: other (Peptic ulcer disease, diverticulosis, cecal polyp) PROCEDURE: EGD with biopsies and colonoscopy with polypectomy SURGEON: Osman Howard ANESTHESIA TYPE: General:No Airway ESTIMATED BLOOD LOSS: 15 PATHOLOGY: other (Cold forceps biopsies of gastric ulcer 1, and gastric ulcer 2, random gastric biopsies of antrum and body. Random esophageal biopsies. 0.25 cm cecal polyp) COMPLICATIONS: None DISPOSITION: same day INDICATIONS: Barbie Trujillo is a 72-year-old woman with recrudescence of dysphagia symptoms, which is associated and the change in character and composition of her bowel movements. PREP: Miralax/Dulcolax PROCEDURE START TIME: 10:56 PROCEDURE END TIME: 11:32 COLONOSCOPY RETRACTION TIME: 8 FINDINGS: Normal-appearing esophagus, normal GE junction and Z-line at 36 cm. 2 stomach ulcers. 0.25 cm slightly pedunculated cecal polyp. PROCEDURE DESCRIPTION: After the initiation of anesthesia, and with the assistance of a bite block, I advanced a standard gastroscope through the mouth past the hypopharynx and into the esophagus.? Under the direct vision of the scope, I advanced down the esophagus towards the stomach.? The proximal, mid, and distal esophagus all appeared totally normal. Z-line was regular, and the GE junction was measured just at 36 cm from the incisors. Narrowband imaging was used to assist with analysis. There is no evidence of any Mcdowell's esophagus. I advanced down into the stomach proper and insufflated until the gastric rugae were obliterated. There was a discrete gastric ulcer along the greater curvature around the level of the incisura angularis. There were no stigmata of recent bleeding. There was a second ulcer a bit closer to the pylorus on the posterior wall. Features are similar to the other ulcer. Cold forceps biopsies were performed both of the stomach ulcers. The pylorus proper appeared normal, and I was able to navigate across into the duodenum. The duodenal bulb, first, second, and third portions of the duodenum all appeared normal and healthy. I then brought the camera back up to the stomach proper. I perform random biopsies of the gastric antrum and body to rule out Helicobacter pylori as a source of the peptic ulcer disease. I then emptied the stomach, and brought the camera back up to the esophagus. Given the patient's proximal symptoms, I did perform random biopsies along the length of the esophagus, although the gross appearance of it was normal. These biopsies were also done with cold forceps without any issues. We then moved Jose R into the left lateral decubitus position. I began by performing an external anorectal exam.? Perineum and skin were normal, as was the anal verge.? There was no evidence of external hemorrhoids.? Next, I performed a digital rectal exam.? I did not appreciate any abnormal findings.? Next, I advanced a colonoscope into the rectal vault.? I performed retroflexion.? This was normal.? Using insufflation, I then advanced the colonoscope beyond the rectal folds and into the sigmoid colon before advancing towards the cecum.? There was sigmoid diverticulosis.? The scope was noted to be in the cecum by identification of the ileocecal valve and appendiceal orifice.? I then began withdrawing the colonoscope using repeated irrigation as necessary for full evaluation of the colonic mucosa. In the cecum was a 0.25 cm slightly pedunculated polyp. I removed this with cold forceps without any issues. ?Once the scope was withdrawn to the level of the rectum, great care was taken to examine portions of the rectal folds.? Finally, the scope was withdrawn and the patient was brought to the same-day surgery recovery unit as the anesthetic wore off. ?The findings and instructions were shared with the patient prior to discharge. The [place] bowel prep score from right to left was 3, 3, 3
--- NOTE | 2023-06-10 19:05 | W.ANESPRE ---
General Info Date of Service Date Performed: 06/11/23 Height: 5 ft 1 in Weight: 71.214 kg Body Mass Index (BMI): 29.6 Surgical Procedure: Operation Date: 06/11/23 11:20 Proposed Procedure Side Surgeon p Colonoscopy/Gastroscopy Osman Howard MD Meds Allergies and Home Medications Allergies Allergy/AdvReac Type Severity Reaction Status Date / Time No Known Allergies Allergy Verified 06/11/23 09:46 Home Medication Medication Instructions Recorded vit C 250 mg-vit E 90 mg-zinc 40 1 ea PO BID 03/28/17 mg-copper 1 [id number] capsule (PreserVision AREDS-2) aspirin 325 mg tablet 650 mg PO DAILY 09/23/21 lamotrigine 100 mg tablet 250 mg (2.5 x 100 mg) PO HS #225 09/05/22 tabs atorvastatin 40 mg tablet (Lipitor) 40 mg PO QPM #90 tabs 12/05/22 omeprazole 40 mg capsule,delayed 40 mg PO HS PRN acid reflux #90 12/05/22 release caps lorazepam 1 mg tablet 1 mg PO DAILY PRN flying anxiety 12/11/22 #5 tabs meclizine 25 mg tablet 25 mg PO TID PRN dizziness #30 01/10/23 tab-caps Current Visit Medications: Current Medications Generic Name Dose Route Start Last Admin Trade Name Freq PRN Reason Stop Dose Admin Hyoscyamine Sulfate 0.125 mg 06/10/23 14:41 Hyoscyamine 0.125 Mg Sl/Oral/Chew SL 07/10/23 14:40 DIRECTED PRN Ringer's Solution 1,000 mls @ 80 mls/hr 06/11/23 06:00 IV 06/11/23 23:59 INFUSION RIKKI IV Miscellaneous Supplies 1 each 06/11/23 06:00 Iv Access IV 06/11/23 23:59 DIRECTED RIKKI Ondansetron HCl 4 mg 06/10/23 14:41 Ondansetron 4 Mg/2 Ml Vial IVP 07/10/23 14:40 Q4H PRN PRN Nausea / Vomiting Sodium Chloride 0 ml 06/11/23 06:00 Normal Saline Flush 10 Ml Syr IV 06/11/23 23:59 PRN PRN Sodium Chloride 0 ml 06/11/23 06:00 Normal Saline 10 Ml Vial IJ 06/11/23 23:59 DIRECTED PRN Sterile Water 0 ml 06/11/23 06:00 Water,Injection,Sterile 10 Ml Vial IJ 06/11/23 23:59 DIRECTED PRN [facility] Active Problems Active Problems: Problem Status Onset Code Dysphagia R13.10 Change in stool habits R19.4 Muscular deconditioning R29.898 Bunion of right foot M21.611 History of total right knee replacement 09/27/21 Z96.651 Primary osteoarthritis of right knee M17.11 Risk for coronary artery disease between 10% and 20% in next 10 years Z91.89 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 Neck pain M54.2 Hyperglycemia R73.9 Calculus of kidney 08/27/15 N20.0 Sepsis due to Staphylococcus A41.2 Status post hernia repair Z98.890, Z87.19 Tendinitis of left rotator cuff M75.82 Back pain M54.9 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 Left hand weakness 01/11/17 R29.898 Ulnar neuropathy at elbow of left upper extremity 03/28/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.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 M26.629 Spinal stenosis of lumbar region with neurogenic claudication 11/09/17 M48.062 Right carpal tunnel syndrome 09/19/17 G56.01 Polyp of colon 06/09/13 K63.5 Overweight E66.3 Numbness and tingling in left arm 01/11/17 R20.0, R20.2 Low back pain M54.5 Left carpal tunnel syndrome 03/28/17 G56.02 Lumbago M54.5 Hyperlipidemia E78.5 Hepatitis a without hepatic coma B15.9 Gastroesophageal reflux disease K21.9 Esophagitis 04/26/16 K20.9 Depressed bipolar I disorder F31.9 Stroke I63.9 Weakness of left arm R29.898 Medical History Medical History Trigger finger of right thumb Anesthesia History of Anti-K blood per pt. Vertigo Recommend premedication with Scopolamine for nausea as pt takes Meclizine 2-3/week prn for frequent bouts of vertigo Necrotizing fasciitis in abdomen, 2005 Polyp of colon History of alcoholism Esophagitis TMJ syndrome Left hand weakness Hepatitis C 15 monthes of interferon, no longer postive for hep c per pt. Numbness and tingling in left arm Renal stones Hyperlipidemia Ulnar neuropathy at elbow of left upper extremity Staphylococcal sepsis Left carpal tunnel syndrome Low back pain with sciatica Depressed bipolar I disorder Right carpal tunnel syndrome Medical History Comments:: Anti-K blood Surgical History Surgical History History of right knee joint replacement S/P trigger finger release Right thumb, 3 digits left hand H/O toe surgery Dr. Faulkner, removed part of great toe d/t osteoarthritis per pt Status post unilateral salpingo-oophorectomy H/O carpal tunnel repair left Hx of section x 2 Fusion of lumbar spine (~12/25/17) [facility] [place]L3-4 DECOMPRESSION AND FUSION abdominal hernia repair Abdominal hysterectomy (~2000) Pt. states she did not have this done,pt. states she has had a fallopian tube and one ovary EGD - [facility] (04/26/16) Colonoscopy - MAC 06/09/13; TUBULAR ADENOMA Bunionectomy 04/13/17; DR. NORMAN Tobacco Smoking/Tobacco Use Status: Never Passive smoking exposure: Yes Second hand exposure: Yes Alcohol Alcohol Intake: former Substance Use Substance use: Never Substance use type: does not use Details: 37 years since alcohol intake Vital Signs and Lab Results Vital Signs Most Recent Vital Signs in EMR: Temp Pulse Resp BP Pulse Ox 36.3 C L 70 18 121/66 98 06/11/23 10:06 06/11/23 10:06 06/11/23 10:06 06/11/23 10:06 06/11/23 10:06 Lab Results Blood Type / Crossmatch: No Data to Display Complete Blood Count: No Data to Display Complete Metabolic Panel: No Data to Display Liver Function Panel: No Data to Display Coagulation Panel: No Data to Display Cardiac Panel: No Data to Display Arterial Blood Gas: No Data to Display Venous Blood Gas: No Data to Display Pancreas Panel: No Data to Display Thyroid Panel: No Data to Display Infectious Disease: No Data to Display Blood Cultures: No Data to Display Toxicology Panel: No Data to Display Imaging and Studies Imaging and Studies Study information below may be from another EMR and interpreted by another provider. Please see original notes in EMR for more complete details. Stress Test Summary: 12/23: normal perfusion and contraction. Echocardiogram Summary: 12/26: LVEF 55-60%, mild LVH. Anesthesia Assessment and Plan Anesthesia History Personal History: Delayed Emergence Family History: No Family History of Anesthesia Complications Exercise Tolerance Exercise Tolerance: Metabolic Equivalents>4 Cardiac & Pulmonary Exam Cardiac Exam: Normal S1/S2 Heart Sounds Pulmonary Exam: Clear Bilateral Breath Sounds Implantable Cardiac Device Does patient have a Pacemaker or an ICD?: No Airway Exam Known Difficult Airway: No Mallampati Class: 2 Mouth Opening: Normal (> 3cm) Thyromental Distance: Greater than 3 cm Neck Range of Motion: Full ROM Neck Circumference: Normal Teeth Condition: Normal Dentition Airway Comments: Multiple missing but nothing loose Caps in back lower right ASA Classification ASA Score: ASA 2 Emergency Case?: No NPO Status NPO Status: NPO Clears >2 hours, Solids >8 hours Anesthesia Plan Resuscitation Status: Full Code Anesthesia Technique: General Anesthesia Airway Planned: Natural Airway Monitors Used: Standard Monitors Preoperative Comments:: 72 yo female for EGD/colo. Sig PMHx: GERD (omperazole), bipolar, TMJ, lumbar spinal stenosis (hardware in place lumbar), vertigo. never smoker. Previous Anes: - TKA, ketamine/midaz, spinal, prop sedation, natural airway, no issues. - colo, midaz, glyco, prop, natural airway, no issues. - ECTR x 2, prop, natural airway, no issues. - EGD, fent, prop, lido, no issues. States a long time to wake up, and also has vertigo which complicates her wake up. BPs on most anes records wnl, and no mention on vertigo issues.
[2023-06-11 10:06] VITALS: BP 121/66; PULSE 70; RESP 18; TEMP 36.3; O2SAT 98
[2023-06-11] MEDS: Lactated Ringers 1,000 ML 80 ML IV (10:11)
[2023-06-11 10:42] VITALS: BMI 29.6
--- NOTE | 2023-06-11 10:58 | STOM_PTH ---
PATIENT: Ronnie Aguilera LOC: [facility] U#:[id number] AGE/SX: 72/F ROOM: RE06/11/[address]: Osman Howard MD : 1950 BED: DIS: 06/11/2023 SPEC #: [id number] RECD: 06/11/23 12:58 STATUS: JENNIFERAldair RE #: [id number] KALYAN: 06/11/23 10:[address]: Osman Howard DEPT: Surgical Specimen RECD BY: Taty Webb ENTERED: 06/11/23 13:00 SP TYPE: STOMACH OTHR DR: Asif Elam MD Tissues: 1 - STOMACH BIOPSY 2 - STOMACH BIOPSY 3 - STOMACH BIOPSY 4 - STOMACH BIOPSY 5 - ESOPHAGUS BIOPSY 6 - BIOPSY BOWEL Procedures: GROSS AND MICRO LEVEL 4 Comments: [id number]
[2023-06-11 11:40] VITALS: BP 121/65; PULSE 54; RESP 16; TEMP 36.4; O2SAT 98
--- NOTE | 2023-06-11 11:43 | W.ANESPOSTOP ---
Postoperative Evaluation Date, Time and Location Date Performed: 06/11/23 Time Performed: 11:44 Patient Location: Day Surgery Unit Vital Signs Most Recent Imported Vital Signs: Most Recent Vital Signs Temp Pulse Resp BP Pulse Ox 36.4 C L 54 L 16 121/65 98 06/11/23 11:40 06/11/23 11:40 06/11/23 11:40 06/11/23 11:40 06/11/23 11:40 Pain Score Most Recent Pain Score: Most Recent Pain Score Pain Level 0 06/11/23 11:40 Assessment Mental Status: Awake (Alert & Oriented to Patient Baseline) Airway and Respiratory Function: Patent airway with normal (patient baseline) respiratory exam Cardiovascular Function: Hemodynamically Stable Hydration Status: Adequately Hydrated Nausea & Vomiting: No Nausea or Vomiting Pain: Pt. Denies Any Pain Peripheral Nerve Block: Patient did not receive a nerve block
== END 2023-06-11 12:41 | disposition home or self-care (01) ==
LOC: SUR 09:39
PROVIDERS: PCP Family Medicine; Visit Provider Surgery
PROC: (CPT 45380; principal; 2023-06-11 11:15)
DX: Z12.11 Encounter for screening for malignant neoplasm of colon (principal); D12.0 Benign neoplasm of cecum; K57.30 Diverticulosis of large intestine without perforation or abscess without bleeding; R13.10 Dysphagia, unspecified; K21.9 Gastro-esophageal reflux disease without esophagitis; K27.9 Peptic ulcer, site unspecified, unspecified as acute or chronic, without hemorrhage or perforation; M54.50 Low back pain, unspecified; M26.629 Arthralgia of temporomandibular joint, unspecified side; F31.9 Bipolar disorder, unspecified
CPT/HCPCS: 45380; 43239; 88305; J2405; J2704

== ENCOUNTER → 2023-06-27 08:59 | Outpatient (BNVA) | payer MEDICARE, SELFPAY | PROVIDERS: PCP Family Medicine; Referring Provider Family Medicine; Visit Provider Surgery | DX: Z48.815 Encounter for surgical aftercare following surgery on the digestive system (principal) | CPT/HCPCS: 99214 ==

== ENCOUNTER 2024-02-28 01:28 | Outpatient (CLI) | payer MEDICARE, SELFPAY ==
--- NOTE | 2024-02-28 07:06 | DI.DEXA_ITS ---
Exam(s) XR DEXA BONE DENSITY W/WO CARA EXAM: XR DEXA BONE DENSITY W/WO CARA CLINICAL HISTORY: screening for osteoporosis in postmenopausal status,z78.0 TECHNIQUE: COMPARISON: No exams were available for comparison FINDINGS: Lateral Spine Image: No compression deformities identified. Posterior spinal fusion from L3 through L5 with grade 1 anterolisthesis of L4 on L5. Left hip: Total T-Score: 0.3 Total Z-Score: 1.9 T- and Z-scores: Within normal limits. Lumbar Spine: Total T-Score: 6.4 Total Z-Score: 8.4 T- and Z-scores: Within normal limits. IMPRESSION: No evidence of osteoporosis.
--- NOTE | 2024-02-28 08:55 | DI.RAD_ITS ---
Exam(s) XR LUMBAR SPINE COMPLETE EXAM: XR LUMBAR SPINE COMPLETE CLINICAL HISTORY: increased low back pain,spinal stenosis,fusion lumbar spine,m54.5,m43.26,. TECHNIQUE: 2D digital imaging was performed of the lumbar spine. Five images were obtained. AP, la teral, right oblique, left oblique and L5-S1 spot views were obtained. COMPARISON: MR MRI - LUMBAR SPINE WO CONTRAST from 10/31/2017 FINDINGS: BONES: No fracture or destructive lesion. Since the prior examination, the patient has undergone pos terior spinal surgery from L3 through L5. There is an L4 laminectomy. There are endplate osteophyte s at all levels of the lumbar spine. Degenerative changes of the facets are present at multiple leve ls of the lumbar spine. DISKS: There is disc space narrowing at all levels of the lumbar spine. Vacuum discs are seen at L1- L2 and L2-L3. ALIGNMENT: There is stable grade 1 anterolisthesis of L4 on L5. SOFT TISSUE: Surgical clips are seen in the abdomen and pelvis. IMPRESSION: 1. Interval postsurgical changes of posterior spinal fusion and L4 laminectomy. 2. Stable grade 1 anterolisthesis of L4 on L5. 3. Marked degenerative changes in the lumbar spine. DATA REPOSITORY: RADIATION DOSE DELIVERED:
== END 2024-02-28 01:48 ==
LOC: DI 01:28
PROVIDERS: PCP Family Medicine; Visit Provider Nurse Practitioner Family
DX: M43.26 Fusion of spine, lumbar region (principal); Z13.820 Encounter for screening for osteoporosis; Z78.0 Asymptomatic menopausal state
CPT/HCPCS: 77080; 72110

== ENCOUNTER 2024-03-26 02:22 | Outpatient (CLI) | payer MEDICARE, SELFPAY ==
--- NOTE | 2024-03-26 10:43 | DI.RAD_ITS ---
Exam(s) XR KNEE LT 3V AP,LAT,SHEREE EXAM: XR KNEE LT 3V AP,LAT,SHEREE CLINICAL HISTORY: left knee pain,m25.562. TECHNIQUE: 2D digital imaging was performed. Three views. COMPARISON: CR XR STANDING ALIGNMENT from 10/14/2021 CR XR KNEE RT 2V AP,LAT from 11/03/2022 FINDINGS: BONES: No acute fracture is present. No bony destructive lesion is seen. JOINTS: Moderate to severe narrowing of the medial femoral tibial joint space causing mild varus angu lation. Compensatory widening of the lateral femoral tibial joint space. Mild periarticular spurrin g in all compartments. No joint effusion is seen. SOFT TISSUE: Normal. IMPRESSION: Moderate to severe degenerative changes of the medial femoral tibial joint space. DATA REPOSITORY: RADIATION DOSE DELIVERED:
== END 2024-03-26 02:42 ==
LOC: DI 02:22
PROVIDERS: PCP Family Medicine; Visit Provider Family Medicine
DX: M17.12 Unilateral primary osteoarthritis, left knee (principal)
CPT/HCPCS: 73562

== ENCOUNTER → 2024-06-27 09:30 | Outpatient (BNVA) | payer MEDICARE, SELFPAY | PROVIDERS: PCP Family Medicine; Referring Provider Family Medicine | DX: M17.12 Unilateral primary osteoarthritis, left knee (principal) | CPT/HCPCS: 20610; J1010 ==

== ENCOUNTER 2024-07-03 16:13 | Outpatient (REF) | payer MEDICARE, SELFPAY | END 2024-07-03 16:14 | disposition home or self-care (01) | LOC: LBN 16:13 | PROVIDERS: PCP Family Medicine; Visit Provider Physician Assistant Medical | DX: L98.9 Disorder of the skin and subcutaneous tissue, unspecified (principal); B95.62 Methicillin resistant Staphylococcus aureus infection as the cause of diseases classified elsewhere | CPT/HCPCS: 87077; 87070; 87186; 87205 ==

== ENCOUNTER 2024-09-06 16:54 | Outpatient (REF) | payer MEDICARE, SELFPAY ==
[2024-09-06 18:18] LABS: Bilirubin Negative (Negative); Blood Trace-intact (Negative); Clarity Cloudy (Clear); Glucose Negative (Negative); Ketones Negative (Negative); Leukocyte Esterase Small (Negative); Nitrite Negative (Negative); Specific Gravity >= 1.030 (1.005-1.025); Urobilinogen 0.2 mg/dL (Up to 0.2)
[2024-09-06 18:47] LABS: Bacteria Many HPF (Negative); C & S Indicated? Yes; Casts Negative LPF (Negative); Crystals Rare Calcium Oxalate HPF (Negative); Epithelial Cells Rare HPF (Negative); Mucus Moderate (Negative); RBC 0-2 HPF (0-2)
== END 2024-09-06 16:55 | disposition home or self-care (01) ==
LOC: LBN 16:54
PROVIDERS: PCP Family Medicine; Visit Provider Physician Assistant
DX: R30.0 Dysuria (principal); B96.29 Other Escherichia coli [E. coli] as the cause of diseases classified elsewhere
CPT/HCPCS: 87077; 81003; 81015; 87086; 87186

== ENCOUNTER 2024-10-02 02:50 | Outpatient (CLI) | payer MEDICARE, SELFPAY ==
[2024-10-02 16:44] LABS: Abs Immature Grans 0.04 10^3/uL (0.0-0.06); HCT 37.3 % (36.0-46.0); HGB 12.5 g/dL (11.2-15.7); Immature Grans % 0.6 %; MCH 31.5 pg (27.0-33.0); MCHC 33.5 % (32.0-36.0); MCV 94 fL (80-95); MPV 10.2 fL (8.0-11.0); Platelet Count 196 10^3/uL (130-400); RBC 3.97 10^6/uL (3.93-5.22); RDW 11.6 % (11.7-14.6); RDW-SD 39.8 fL; WBC 6.19 10^3/uL (4.4-10.8)
[2024-10-02 17:16] LABS: Anion Gap 6.8 mmol/L (3-11); BUN 18 mg/dL (7-18); CO2 30.2 mmol/L (21.0-32.0); Calcium 9.7 mg/dL (8.5-10.1); Chloride 107 mmol/L (98-107); Estimated GFR 78.24 (mL/min/1.73m2); Glucose 93 mg/dL (74-106); Potassium 4.3 mmol/L (3.5-5.1); Sodium 144 mmol/L (136-145)
== END 2024-10-02 02:51 | disposition home or self-care (01) ==
LOC: LBO 02:50
PROVIDERS: PCP Family Medicine; Visit Provider Student in an Organized Health Care Education/Training Program
DX: M17.12 Unilateral primary osteoarthritis, left knee (principal); Z01.818 Encounter for other preprocedural examination; D64.9 Anemia, unspecified
CPT/HCPCS: 36415; 80048; 85025

== ENCOUNTER 2024-10-15 05:57 | Day surgery (SDC) | payer MEDICARE, SELFPAY ==
[2024-10-15] VITALS (37 sets, daily range): BP systolic 82–145; BP diastolic 43–74; PULSE 52–73; RESP 11–25; TEMP 36.5–36.7; O2SAT 91–97; BMI 31.6
[2024-10-15] MEDS: Acetaminophen 500 MG TAB 1000 MG PO (06:50)
[2024-10-15] MEDS: Celecoxib 200 MG CAP 400 MG PO (06:50)
[2024-10-15] MEDS: Gabapentin 300 MG CAP PO (06:50)
--- NOTE | 2024-10-15 06:50 | W.ANESPRE ---
General Info Date of Service Date Performed: 10/15/24 Height: 5 ft 1 in Weight: 75.9 kg Body Mass Index (BMI): 31.6 Surgical Procedure: Operation Date: 10/15/24 08:25 Proposed Procedure Side Surgeon p Knee Total Arthroplasty Left Giovanny Ravi MD Meds Allergies and Home Medications Allergies Allergy/AdvReac Type Severity Reaction Status Date / Time No Known Allergies Allergy Verified 10/15/24 06:27 Home Medication ?Medication ?Instructions ?Recorded vit C 250 mg-vit E 90 mg-zinc 40 1 ea PO BID 03/28/17 mg-copper 1 sy-[id number]-[id number] capsule (PreserVision AREDS-2) aspirin 325 mg tablet 650 mg PO DAILY 09/23/21 lorazepam 1 mg tablet 1 mg PO DAILY PRN flying anxiety 12/11/22 #5 tabs lamotrigine 100 mg tablet 250 mg (2.5 x 100 mg) PO HS #225 02/19/24 tabs meclizine 25 mg tablet 25 mg PO TID PRN dizziness #30 03/17/24 tab-caps atorvastatin 40 mg tablet (Lipitor) 40 mg PO QPM #90 tabs 09/16/24 omeprazole 40 mg capsule,delayed 40 mg PO HS PRN acid reflux #90 09/16/24 release caps estradiol 0.01% (0.1 mg/gram) 1 applic vaginal .Twice weekly 09/18/24 vaginal cream (Estrace) #42.5 grams nystatin-triamcinolone 100,000 1 applic topical BID #60 grams 09/18/24 unit/g-0.1 % topical cream Held on 09/25/24. Instructions: Changed by Provider estradiol 10 mcg vaginal tablet 10 mcg vaginal .Twice weekly 3 09/22/24 (Vagifem) months #30 tabs betamethasone dipropionate 0.05 % 1 applic topical BID #45 grams 09/25/24 topical cream clobetasol 0.05 % topical ointment 1 applic topical BID #30 grams 09/25/24 Held on 09/25/24. Instructions: Changed by Provider nystatin 100,000 unit/gram topical 1 applic topical BID #30 grams 09/25/24 cream acetaminophen 500 mg tablet 1,000 mg (2 x 500 mg) PO TID #90 10/15/24 tabs celecoxib 200 mg capsule 200 mg PO BID #60 caps 10/15/24 dexamethasone 4 mg tablet 4 mg PO DAILY #2 tabs 10/15/24 gabapentin 300 mg capsule 300 mg PO QHS #14 caps 10/15/24 oxycodone 5 mg tablet 5 mg PO Q4H PRN #18 tabs 10/15/24 Current Visit Medications: Current Medications Generic Name Dose Route Start Last Admin Trade Name Freq PRN Reason Stop Dose Admin Acetaminophen 1,000 mg 10/15/24 06:00 10/15/24 06:50 Acetaminophen 500 Mg Tab PO 10/15/24 23:59 1,000 mg PREOP RIKKI Administration Celecoxib 400 mg 10/15/24 06:00 10/15/24 06:50 Celecoxib 200 Mg Cap PO 10/15/24 23:59 400 mg PREOP RIKKI Administration Gabapentin 300 mg 10/15/24 06:00 10/15/24 06:50 Gabapentin 300 Mg Cap PO 10/15/24 23:59 300 mg PREOP RIKKI Administration Ringer's Solution 1,000 mls @ 80 mls/hr 10/15/24 06:00 IV 10/15/24 23:59 INFUSION RIKKI Cefazolin Sodium/Dextrose 2 gm in 50 mls @ 100 mls/hr 10/15/24 06:00 Ancef Duplex IVPB 10/15/24 23:59 PREOP RIKKI Tranexamic Acid/Sodium Chloride 1,000 mg in 100 mls @ 600 mls/hr 10/15/24 06:00 IVPB 10/15/24 23:59 PREOP RIKKI IV Miscellaneous Supplies 1 each 10/15/24 06:00 Iv Access IV 10/15/24 23:59 DIRECTED RIKKI Sodium Chloride 0 ml 10/15/24 06:00 Normal Saline Flush 10 Ml Syr IV 10/15/24 23:59 PRN PRN Sodium Chloride 0 ml 10/15/24 06:00 Normal Saline 10 Ml Vial IJ 10/15/24 23:59 DIRECTED PRN Sterile Water 0 ml 10/15/24 06:00 Water,Injection,Sterile 10 Ml Vial IJ 10/15/24 23:59 DIRECTED PRN PFSH Active Problems Active Problems: Problem Status Onset Code Yeast dermatitis Acute B37.2 Atrophic vulvovaginitis Acute N95.2 Female perineal bleeding Acute N90.89 Osteoarthritis of left knee Acute M17.12 Dysphagia Acute R13.10 Change in stool habits Acute R19.4 Muscular deconditioning Acute R29.898 Bunion of right foot Acute M21.611 Risk for coronary artery disease between 10% and 20% in next 10 years Acute Z91.89 Cervical spine degeneration Acute M47.812 Neck pain Acute M54.2 Hyperglycemia Acute R73.9 Calculus of kidney Acute 08/27/15 N20.0 Sepsis due to Staphylococcus Acute A41.2 Status post hernia repair Acute Z98.890, Z87.19 Tendinitis of left rotator cuff Acute M75.82 Back pain Chronic M54.9 Meniere syndrome Chronic H81.09 Left hand weakness Acute 01/11/17 R29.898 Ulnar neuropathy at elbow of left upper extremity Acute 03/28/17 G56.22 TMJ syndrome Acute 03/25/15 M26.629 Spinal stenosis of lumbar region with neurogenic claudication Acute 11/09/17 M48.062 Right carpal tunnel syndrome Acute 09/19/17 G56.01 Polyp of colon Acute 06/09/13 K63.5 Overweight Acute E66.3 Numbness and tingling in left arm Acute 01/11/17 R20.0, R20.2 Low back pain Acute M54.5 Left carpal tunnel syndrome Acute 03/28/17 G56.02 Lumbago Acute M54.5 Hyperlipidemia Acute E78.5 Hepatitis a without hepatic coma Acute B15.9 Gastroesophageal reflux disease Acute K21.9 Esophagitis Acute 04/26/16 K20.9 Depressed bipolar I disorder Acute F31.9 Stroke Acute I63.9 Weakness of left arm Acute R29.898 Medical History Medical History Trigger finger of right thumb Anesthesia History of Anti-K blood per pt. Vertigo Recommend premedication with Scopolamine for nausea as pt takes Meclizine 2-3/week prn for frequent bouts of vertigo Necrotizing fasciitis in abdomen, 2005 Polyp of colon History of alcoholism Esophagitis TMJ syndrome Left hand weakness Hepatitis C 15 monthes of interferon, no longer postive for hep c per pt. Numbness and tingling in left arm Renal stones Hyperlipidemia Ulnar neuropathy at elbow of left upper extremity Staphylococcal sepsis Left carpal tunnel syndrome Low back pain with sciatica Depressed bipolar I disorder Right carpal tunnel syndrome Medical History Comments:: Anti-K blood Surgical History Surgical History History of total right knee replacement (09/27/21) History of right knee joint replacement S/P trigger finger release Right thumb, 3 digits left hand H/O toe surgery Dr. Faulkner, removed part of great toe d/t osteoarthritis per pt Status post unilateral salpingo-oophorectomy H/O carpal tunnel repair left Hx of section x 2 Fusion of lumbar spine (~12/25/17[place] [facility] [place] DECOMPRESSION AND FUSION Abdominal hysterectomy (~2000) Pt. states she did not have this done,pt. states she has had a fallopian tube and one ovary EGD - [facility] (06/2023) Colonoscopy - [facility] (~06/2023) 06/09/13; TUBULAR ADENOMA Bunionectomy 04/13/17; DR. NORMAN Tobacco Smoking/Tobacco Use Status: Never Passive smoking exposure: Yes Second hand exposure: Yes Alcohol Alcohol Intake: former Year quit: 1979 Substance Use Substance use: Current Sobriety Substance use type: former substance user Date of last use: Details: 38 years since alcohol intake Prental History History 6 Para 4 Hx # Term Pregnancies 4 Multiple births Hx # Pregnancies Ectopic pregnancies AB induced 2 Hx Number of Living Children 4 AB spontaneous 2 Past Pregnancies Del. Date GA/Weeks # Preg Succ Route Wgt Sex Labor Lgth Anesthesia Location Prov Complic Unknown vaginal 3316.894 g Unknown vaginal 4280.778 g Unknown 4124.856 g Unknown Yes 4224.079 g Delivery Date: Last Updated by: Idania Dyson RN Home Delivery Date: Last Updated by: Idania Dyson RN Home Delivery Date: Last Updated by: CLEM [place]ron[place] Delivery Date: Last Updated by: CLEM [place] Vital Signs and Lab Results Vital Signs Most Recent Vital Signs in EMR: Most Recent Vital Signs Temp Pulse Resp BP Pulse Ox 36.7 C 58 L 16 117/72 97 10/15/24 06:15 10/15/24 06:15 10/15/24 06:15 10/15/24 06:15 10/15/24 06:15 Lab Results Complete Blood Count: WBC, (4.4-10.8) 6.19 10^3/uL 10/02/24, 16:39 RBC, (3.93-5.22) 3.97 10^6/uL 10/02/24, 16:39 Hgb, (11.2-15.7) 12.5 g/dL 10/02/24, 16:39 Hct, (36.0-46.0) 37.3 % 10/02/24, 16:39 Plt Count, (130-400) 196 10^3/uL 10/02/24, 16:39 Complete Metabolic Panel: Sodium, (136-145) 144 mmol/L 10/02/24, 16:39 Potassium, (3.5-5.1) 4.3 mmol/L 10/02/24, 16:39 Chloride, (98-107) 107 mmol/L 10/02/24, 16:39 Carbon Dioxide, (21.0-32.0) 30.2 mmol/L 10/02/24, 16:39 BUN, (7-18) 18 mg/dL 10/02/24, 16:39 Creatinine, (0.55-1.02) 0.8 mg/dL 10/02/24, 16:39 Est GFR (CKD-EPI 2020), (mL/min/1.73m2) 78.24 10/02/24, 16:39 Calcium, (8.5-10.1) 9.7 mg/dL 10/02/24, 16:39 Glucose, (74-106) 93 mg/dL 10/02/24, 16:39 Imaging and Studies Imaging and Studies Study information below may be from another EMR and interpreted by another provider. Please see original notes in EMR for more complete details. Stress Test Summary: 12/23: normal perfusion and contraction. Echocardiogram Summary: 12/26: LVEF 55-60%, mild LVH. Anesthesia Assessment and Plan Anesthesia History Personal History: Delayed Emergence Family History: No Family History of Anesthesia Complications Exercise Tolerance Exercise Tolerance: Metabolic Equivalents>4 Cardiac & Pulmonary Exam Cardiac Exam: Normal S1/S2 Heart Sounds Pulmonary Exam: Clear Bilateral Breath Sounds Implantable Cardiac Device Does patient have a Pacemaker or an ICD?: No Airway Exam Known Difficult Airway: No Mallampati Class: 2 Mouth Opening: Normal (> 3cm) Thyromental Distance: Greater than 3 cm Neck Range of Motion: Full ROM Neck Circumference: Normal Teeth Condition: Normal Dentition Airway Comments: Multiple missing but nothing loose Caps in back lower right ASA Classification ASA Score: ASA 3 Emergency Case?: No NPO Status NPO Status: NPO Clears >2 hours, Solids >8 hours Anesthesia Plan Resuscitation Status: Full Code Anesthesia Technique: General Anesthesia Airway Planned: Endotracheal Tube Pain Management: Surgeon and patient request nerve block Monitors Used: Standard Monitors Preoperative Comments:: 74 yo female for TKA with Dr. Ravi. Plan of GETA with block due to severe spinal stenosis and lumbar hardware. Sig PMHx: GERD (omperazole), bipolar, TMJ, lumbar spinal stenosis (hardware in place lumbar), vertigo. never smoker. Previous Anes: - EGD/[place]: Propofol GA with natural airway - TKA, ketamine/midaz, spinal, prop sedation, natural airway, no issues. - colo, midaz, glyco, prop, natural airway, no issues. - ECTR x 2, prop, natural airway, no issues. - EGD, fent, prop, lido, no issues. States a long time to wake up, and also has vertigo which complicates her wake up. BPs on most anes records wnl, and no mention on vertigo issues.
--- NOTE | 2024-10-15 07:13 | PDOC.DSDIS_ITS ---
Date of service: 10/15/24 Discharge Plan Disposition Patient Disposition: Home Condition: Good Discharge Details Reason For Visit: L TKR Attending Provider: Giovanny Ravi Primary Care Provider: Asif Elam Home Meds and New Rx's Prescriptions: New celecoxib 200 mg capsule 200 mg PO BID Qty: 60 0RF acetaminophen 500 mg tablet 1,000 mg PO TID Qty: 90 3RF dexamethasone 4 mg tablet 4 mg PO DAILY Qty: 2 0RF gabapentin 300 mg capsule 300 mg PO QHS Qty: 14 0RF oxycodone 5 mg tablet 5 mg PO Q4H PRNQty: 18 0RF Continued nystatin-triamcinolone 100,000-0.1 unit/g-% cream 1 applic topical BID Qty: 60 1RF estradiol [Estrace] 0.01 % (0.1 mg/gram) cream 1 applic vaginal .Twice weekly Qty: 42.5 1RF Rx Instructions: Apply a pea-sized amount to the vulva twice weekly atorvastatin [Lipitor] 40 mg tablet 40 mg PO QPM Qty: 90 3RF omeprazole 40 mg capsule,delayed release(DR/EC) 40 mg PO HS PRN (Reason: acid reflux) Qty: 90 3RF PreserVision AREDS-2 1 EACH capsule 1 ea PO BID lorazepam 1 mg tablet 1 mg PO DAILY PRN (Reason: flying anxiety) Qty: 5 0RF Rx Instructions: take 30 min before flight lamotrigine 100 mg tablet 250 mg PO HS Qty: 225 3RF Rx Instructions: [facility] meclizine 25 mg tablet 25 mg PO TID PRN (Reason: dizziness) Qty: 30 3RF estradiol [Vagifem] 10 mcg tablet 10 mcg vaginal .Twice weekly 90 Days Qty: 30 3RF nystatin 100,000 unit/gram cream 1 applic topical BID Qty: 30 1RF Rx Instructions: Apply twice daily with Temovate clobetasol 0.05 % ointment 1 applic topical BID Qty: 30 1RF Rx Instructions: Apply twice daily with nystatin cream betamethasone dipropionate 0.05 % cream 1 applic topical BID Qty: 45 1RF Rx Instructions: Apply twice daily with nystatin cream aspirin 325 mg Tablet 650 mg PO DAILY Discharge Instructions Additional Instructions: Total Knee Discharge Instructions Activity: The most important activity is to walk and to work on gentle motion (both flexion and extension). You should try to take short walks a few times a day. It is important that when resting you work on keeping the knee straight. Avoid putting a pillow behind the knee as this will encourage flexion. Work on range of motion exercises as provided by Physical Therapy. - Start outpatient physical therapy within 2 weeks. - You should wear the JG hose on both legs for 2 weeks. You may remove these at night. You may also use any compression sock in place of the JG hose. - Utilize [employer] to review exercises, see videos on exercises and obtain basic information pertaining to your surgery and your recovery. Dressing: Remove the Gary wrap by 2 days after your surgery and put on the JG stocking given to you from the hospital. Keep the surgical dressing (underneath the GAYR wrap) in place for at least one week. After the first week it may be removed and replaced with light gauze and tape or nothing. The wound and dressing may get wet after 3 days but avoid soaking the dressing or otherwise it will need to be changed. Many people prefer covering the dressing with cling wrap (saran wrap) to minimize it from getting soaked. If it gets wet, just pat dry. If it starts to peel off then it will need to be changed. Medications: - You should take Tylenol and anti-inflammatory Celebrex as your primary pain control medications. If the Celebrex is too expensive or not covered, please call the office for another alternative (Advil/Ibuprofen or Naproxen/Aleve) - You have been prescribed a stronger pain medication Oxycodone for breakthrough pain, take as needed as prescribed. - You will continue your stomach acid reduction agent omeprazole to help reduce stomach acid and reflux. - You have been prescribed Gabapentin to take at night for restlessness and nerve pain. - You will be taking your Aspirin 325mg daily which will help with DVT prevention unless instructed otherwise. - You have also been prescribed Decadron to take to control post-operative nausea and pain. You will start this tomorrow. - If you have constipation you should take Colace or Miralax (both [id number]). It takes most people 3-4 days to have a bowel movement. Follow-up: 2 weeks If you have any acute concerns or questions, please do not hesitate to contact the office at [phone]. You may contact Dr. Ravi with any questions after hours through the hospital at [phone] or on his cell phone at [phone]. Referrals: Giovanny Ravi MD [ [facility] STAFF PHYSICIAN, Orthopaedic Surgical] Equipment/Supplies: Walker Activity:: Activity as Tolerated Shower/Bathe:: 72 hours Diet:: As Tolerated Discharge Orders Discharge Orders: Discharge Order (Routine); Ordered 10/15/24 Ordered By: Clarence Ramirez DS: Diagnosis Discharge Diagnosis (1) Osteoarthritis of left knee: Status: Acute
[2024-10-15] MEDS: Lactated Ringers 1,000 ML 80 ML IV (07:24)
--- NOTE | 2024-10-15 08:08 | W.ANESNERVE ---
Nerve Block Single Injection Procedure Date and Time Date Performed: 10/15/24 Procedure Start: 07:58 Location Where Procedure Performed Procedure Location: Day Surgery Unit Reason Performed: Postoperative Analgesia Requesting Provider: Giovanny Ravi Timeout Performed Timeout Performed: Yes Monitoring Used ECG, Blood Pressure and SpO2 Sterility Sterility: Hand Hygiene, Surgical Cap, Surgical Mask, Sterile Gloves and Chlorhexidine Sedation Given During Procedure Sedation Given (Indicate Dose Given): Precedex IV Dose:: 12 mcg Patient Mental Status Patient Mental Status: Sedate with meaningful communication Nerve Block 1st Nerve Block: Laterality: Left Block Type: Adductor Canal Ultrasound Image Saved?: Yes Needle / Catheter Used: 100mm SonoPlex II Local Anesthetic Bolus (Indicate Dose Given): Lidocaine used for local infiltration of skin, Injected in 3-5ml increments after negative blood aspiration, Bupivacaine 0.25% Dose:: 10 ml and Exparel Dose:: 10 ml Additives (Indicate Dose Given): None Ultrasound: Sterile probe cover and gel used Nerve Stimulator: Supplement to Ultrasound use and No twitch or parasthesia noted < 0.5 mA Paresthesia: None Procedure Tolerated: No Complications and Patient tolerated well Procedure Outcome: Successful Performed By: Marcus Da Silva 2nd Nerve Block: Laterality: Left Block Type: Other (Anterior femoral cutaneous nerve block) Ultrasound Image Saved?: Yes Needle / Catheter Used: 100mm SonoPlex II Local Anesthetic Bolus (Indicate Dose Given): Lidocaine used for local infiltration of skin, Injected in 3-5ml increments after negative blood aspiration and Bupivacaine 0.25% Dose:: 5 ml Additives (Indicate Dose Given): None Ultrasound: Sterile probe cover and gel used Nerve Stimulator: Supplement to Ultrasound use and No twitch or parasthesia noted < 0.5 mA Paresthesia: None Procedure Tolerated: No Complications and Patient tolerated well Procedure Outcome: Successful Performed By: Marcus Da Silva
--- NOTE | 2024-10-15 08:12 | W.PM.OP ---
Operative Note Operative Note PRE-OP DIAGNOSIS: Left Knee Osteoarthritis POST-OP DIAGNOSIS: same PROCEDURE: Left Total Knee Replacement SURGEON: [facility] DIRECTOR: Keiko Ramirez ANESTHESIA TYPE: General LMA/ETT Refer to Anesthesia Record ESTIMATED BLOOD LOSS: 50 PATHOLOGY: none sent TOURNIQUET TIME: 0 COMPLICATIONS: None Patient was transported to: PACU Patient's condition: stable Implants: 1. Depuy Attune Cementless Cruciate Retaining Femoral Component, Size 5 2. Depuy Attune Cementless Fixed Bearing Tibial Component, Size 5 3. Depuy Attune 5x8mm CR/FB Poly Indications: I have seen Barbie in clinic for symptoms of knee arthritis, confirmed with radiographic findings. She has exhausted nonoperative methods and was having significant limitations in daily function and desired better function and less pain. I discussed the technical details of a knee replacement. I explained the risks of the procedure to include, but not limited to, bleeding, infection, pain, stiffness, fracture, damage to nerves and vessels, damage to muscles and tendons, loosening, need for repeat procedure, blood clot and cardiopulmonary demise. Despite these risks, Barbie elected to proceed. Findings: There was significant signs of arthritis throughout the knee, mostly involving the medial compartment with some lateral disease. Procedure Description: Barbie was greeted in the preoperative holding area where the correct side was identified and marked. The consent was reviewed with the patient and signed. The history and physical was updated. All questions were answered. Preoperative medications were administered: Acetaminophen 1000mg, Celebrex 400mg, and Gabapentin 300mg. An adductor canal block was then administered by the anesthesia team in the DSU. She was taken back to the operating room. A general anesthetic was administered. The patient was placed into the supine position on the operating room table. Posts were placed for positioning during the procedure. All bony prominences were well padded. Prophylactic antibiotics in the form of Cefazolin were administered. 1g of Tranxemic Acid was given intravenously within 30 minutes of incision. The left leg was then prepped with Chloraprep and draped in a standard fashion with impervious stockinette. A second prep with Chloraprep was performed prior to application of Iodine impregnated skin protection. A timeout to confirm correct identity, side and site, procedure, allergies, anesthesia, and medical concerns was performed. With the knee in some flexion, a midline incision was made overlying the knee. Full thickness skin flaps were raised once the extensor mechanism was encountered. These were raised medially and laterally. Any bleeding was controlled with electrocautery. Once the extensor mechanism was fully exposed, a medial parapatellar arthrotomy was performed in a flexed position. All bleeding from the arthrotomy and the geniculate arteries was coagulated. A medial subperiosteal peel was performed with electrocautery to the midcoronal plane. The fat pad was removed while keeping the patellar tendon protected. The anterior distal femur synovium was removed for later visualization. The ACL and PCL were resected and the anterior horn of the lateral meniscus was transected. The knee was then flexed with the patella everted. Large osteophytes from the tibia were removed. Large osteophytes from the femur were removed. Using a step drill, and based on preoperative templating, the femoral canal was entered. This was done with a step drill without any difficulty. The intramedullary distal femoral cut guide was inserted, set to a 6 degree valgus cut and 9mm cut thickness. The distal femoral cut guide was then held in position and pinned. With the soft tissues protected, the distal cut was performed. This was passed over a few times to ensure a planar cut. I then turned attention to the tibia. The extramedullary guide was placed onto the leg. The distal aspect was slid medial to adjust for position of center of ankle and stay in line with shaft of the tibia. Approximately 3-5 degrees of posterior slope was kept in the proximal cutting guide. The center of the guide was aligned with the PCL. The stylus was used to assess cut thickness. The medial side, most involved side, was set for a 5mm cut, corresponding to 9 mm lateral. This was then held in position and pinned into place with 2 additional pins and a cross pin for stability. The medial and lateral collateral ligaments were protected and the cut was performed. With this completed, it was assessed and noted to be of appropriate dimensions. The guide was removed. A spacer block was inserted and the knee was brought into extension. The 7mm spacer block provided full extension, without hyperextension and with stability of both the medial and lateral collateral ligaments was assessed. The pins from the femur and the tibia were then removed. The distal femur was then sized. The anterior stylus was placed onto the lateral ridge of the anterior femur. This indicated a size 5 femur. The external rotation of the guide was adjusted to 0 degrees to match the epicondylar axis, perpendicular to Andrew?s line. The 4-in-1 cutting guide was the placed. The posterior medial femur cut was evaluated and appeared of good thickness. The spacer block was inserted underneath the cutting guide and stability was confirmed in 90 degrees of flexion. An fawn wing was used to confirm appropriate position of the anterior cut to avoid notching. This cutting guide was ensured to be flush on the cut surface and then pinned into place with headed pins. While protecting the soft tissues, quad tendon, and collateral ligaments, the anterior and posterior cuts were performed with a saw. The central two pins were removed and the posterior and anterior chamfers were cut next. The notch-cutting guide was placed. This was pinned to lateralize the femoral component as much as possible while keeping it flush on the cut surface. This was then pinned into position. A reciprocating saw was used to make the notch cut. A rasp smoothed the cut surfaces. The medial and lateral menisci were removed. A trial femoral component was then inserted, impacted down to the cut surfaces, and the lug holes were drilled. A provisional trial tibial component was placed and the knee was brought through range of motion. The polyethylene was trialed until there was good flexion and extension with excellent stability to the medial and lateral collaterals. The patella was tracking without thumbs. A size 8mm polyethylene component provided the best range of motion and stability with less than 2mm gapping with medial and lateral stress and full extension without significant hyperextension. The tibial cut surface was fully exposed. The tibia was then sized as a 5. The tibia had been previously marked during trialing to correspond to the center of the tibial component to help with rotation. The trial was aligned to this keiko, approximately rotated to the medial 1/3rd of the tibial tubercle. The trial was pinned into place. The tibia was prepared with a reamer and a keel punch and lug holes. The trial components were removed. The final components were opened on the back table. The periosteal and capsular tissues, especially posteriorly, around the knee were then systematically injected with a periarticular cocktail consisting of 246mg of Ropivacaine, 0.5mg of Epinephrine, 0.08mg of Clonidine, and 30mg of Ketorolac, diluted to 100cc. On the back table, with the implants opened. The cementless knee components were placed. Starting with the tibial component, the tibia was subluxed anteriorly and the lug holes of the component were lined up. The tibia was then impacted with an impactor and mallet until the tibial component was in contact with the tibia. The final polyethylene component was inserted. Then, the femoral component was inserted. The lug holes were aligned and the component was impacted into position. The knee was irrigated with Surgiphor Betadine solution. This was allowed to sit in the knee for 3 minutes and then it was irrigated out with saline. The patella was tracking with a no-thumbs technique. A complete synovectomy was performed around the patella along with a lateral facetectomy. The capsule was then reapproximated with a No. 1 Vicryl at multiple locations. The capsule was finally closed with a No. 2 Stratafix, barbed suture. Deep tissues were then reapproximated with 0 Vicryl and 2-0 Vicryl. The skin was closed with a running 3-0 Monocryl in a subcuticular fashion. This was reinforced with skin glue. A Mepilex silver dressing was applied along with a [id number] JOHANNA wrap. A CryoCuff was applied. Barbie was transferred to the hospital bed without difficulty an suffering no apparent complication. She has a good prognosis. Physical therapy will start today and without restrictions, weight-bearing as tolerated. Her baseline dose of aspirin 650 mg daily will be used for DVT prophylaxis. Date of Procedure: 10/15/24
[2024-10-15] MEDS: ceFAZolin 2 GM/50 ML BAG IVPB (08:16)
[2024-10-15] MEDS: TRANEXAMIC ACID/SOD. CHL. 1,000 MG/100 ML BAG 600 MG IVPB (08:23)
[2024-10-15] MEDS: fentaNYL 100 MCG/2 ML VIAL IVP (10:11)
[2024-10-15] MEDS: Meclizine 12.5 MG TAB PO (10:14)
[2024-10-15] MEDS: oxyCODONE 5 MG TAB PO (12:04)
--- NOTE | 2024-10-15 12:05 | W.ANESPOSTOP ---
Postoperative Evaluation Date, Time and Location Date Performed: 10/15/24 Time Performed: 12:05 Patient Location: Day Surgery Unit Vital Signs Most Recent Imported Vital Signs: Most Recent Vital Signs Temp Pulse Resp BP Pulse Ox 36.6 C 58 L 14 106/52 L 93 10/15/24 11:15 10/15/24 11:15 10/15/24 11:15 10/15/24 11:34 10/15/24 11:34 Pain Score Most Recent Pain Score: Most Recent Pain Score Pain Level 3 10/15/24 11:15 Assessment Mental Status: Awake (Alert & Oriented to Patient Baseline) Airway and Respiratory Function: Patent airway with normal (patient baseline) respiratory exam Cardiovascular Function: Hemodynamically Stable Hydration Status: Adequately Hydrated Nausea & Vomiting: No Nausea or Vomiting Pain: Pain is tolerable per patient Peripheral Nerve Block: Regional nerve block not resolved at time of post operative discharge Postoperative Comments:: Has mild dizziness. States this is much better than previous anesthetics. Waiting to do PT.
--- NOTE | 2024-10-15 14:13 | IN_ITS ---
PT Notes Visit Reasons: L TKR Physical Therapy Day Surgery Initial Evaluation Date: 10/15/2024 Referring Doctor: LOULOU Lan/Dr. Ravi PT Orders: PT CONSULT: PT evaluation and treatment status post Ortho surgery Precautions: WBAT left LE with assistive device, TEDS x 2 weeks, monitor for symptoms of vertigo Patient Profile/Admitting Diagnosis: Ronnie is a 74-year-old female presenting status post elective left TKA under general anesthesia by Dr. Ravi on 10/15/2024. Postop patient limited by symptoms of M?ni?re's and vertigo but able to participate in evaluation PMHX: Osteoarthritis of left knee (Acute) Dysphagia (Acute) Change in stool habits (Acute) Muscular deconditioning (Acute) Bunion of right foot (Acute) History of total right knee replacement (Acute 09/27/21) Risk for coronary artery disease between 10% and 20% in next 10 years (Acute) Cervical spine degeneration (Acute) Neck pain (Acute) Hyperglycemia (Acute) Calculus of kidney (Acute 08/27/15) Sepsis due to Staphylococcus (Acute) Status post hernia repair (Acute) Tendinitis of left rotator cuff (Acute) Back pain (Chronic) Meniere syndrome (Chronic) see ENT as arrangedLeft hand weakness (Acute 01/11/17) Ulnar neuropathy at elbow of left upper extremity (Acute 03/28/17) TMJ syndrome (Acute 03/25/15) Spinal stenosis of lumbar region with neurogenic claudication (Acute 11/09/17) cleared for surgery on low back reassured about neck node--will followRight carpal tunnel syndrome (Acute 09/19/17) Polyp of colon (Acute 06/09/13) 06/09/13; DR. 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 Gastroesophageal reflux disease (Acute) Esophagitis (Acute 04/26/16) Depressed bipolar I disorder (Acute) Stroke (Acute) Weakness of left arm (Acute) Medical History Trigger finger of right thumb Anesthesia History of Anti-K blood per pt.Vertigo Recommend premedication with Scopolamine for nausea as pt takes Meclizine 2- 3/week prn for frequent bouts of vertigoNecrotizing fasciitis in abdomen, 2005Polyp of colon History of alcoholism Esophagitis TMJ syndrome Left hand weakness Hepatitis C 15 monthes of interferon, no longer postive for hep c per pt.Numbness and ting ling in left arm Renal stones Hyperlipidemia Ulnar neuropathy at elbow of left upper extremity Staphylococcal sepsis Left carpal tunnel syndrome Low back pain with sciatica Depressed bipolar I disorder Right carpal tunnel syndrome Surgical History History of right knee joint replacement S/P trigger finger release Right thumb, 3 digits left handH/O toe surgery Dr. Faulkner, removed part of great toe d/t osteoarthritis per ptStatus post unilateral salpingo-oophorectomy H/O carpal tunnel repair leftHx of section x 2 Fusion of lumbar spine (~12/25/17) [facility] [place];L3-4 DECOMPRESSION AND FUSIONabdominal hernia repair Abdominal hysterectomy (~2000) Pt. states she did not have this done,pt. states she has had a fallopian tube and one ovaryEGD - MAC (06/2023) Colonoscopy - MAC (~06/2023) 06/09/13; TUBULAR ADENOMABunionectomy 04/13/17; DR. NORMAN Social History/Home Situation: Patient will be discharged to family members [address] [facility] home 3 steps to enter with 1 rail. Patient independent with ambulation and ADLs, meal prep prior to surgery. Patient very active walking. Equipment Owned/DME: Fitted for FWW Subjective: Patient reports she did receive meclizine postop due to chronic vertigo and M?ni?re's. She states she has slight effects with position changes but if she moves slowly she can control it. Patient reports she will be staying with family for approximately 1 week and then will return to her home. She states she lives in a two-story home 13 steps with bilateral rails to enter and a flight of stairs to her bedroom and the only bathroom in the house. Objective: [] General Observation: Presented semireclined in stretcher with Cryo/Cuff to left knee, sister present as responsible green party. Mental Status: Alert and oriented x 4, cooperative, able to follow instructions, agreeable to participate in assessment Pain: 4?5/10 left knee ROM: BUE: WNL Right Lower Extremity: WNL Left Lower Extremity: hip and ankle WNL, knee 0-100 degrees Strength: BUE: 5/5 Right Lower Extremity:5/5 Left Lower Extremity: Hip flexion: 3- /5; hip abduction: 3/5; hip extension: 3/5; knee extension: 3 /5; knee flexion: 3- /5 ankle DF: 3 /5 ; ankle PF: 3 /5; demonstrates strong quad set and SLR without lag Sensation: intact Bed Mobility/Transfers: Supine to sit Supervision Sit to stand SBA Stand to sit SBA Bed to chair SBA FWW Gait: Ambulated 100 feet standby assist with FWW with slow maya reciprocal pattern demonstrating strong quad activation in mid stance Stairs: 5 steps with 2 rails step to pattern SBA; 5 steps with 1 rail CGA with step to pattern Balance: Static Sitting: Normal Dynamic Sitting: Good Static Standing: Good Dynamic Standing: Fair plus Special Tests: Mobility Limitations Standardized Measure [facility] AM-PAC 6 clicks Basic Mobility Inpatient Short Form: Raw Score: 22 CMS Score: 20.91% deficit Informed Consent/Education: Patient instructed in purpose of PT consult. Treatment: 77108 Packet containing TKA exercise protocol has been given to patient. Education and training on initial set of 10 reps of exercises that can be done at home have been completed with patient. Assessment: Patient is a 74 yo female who presents with clinical signs and symptoms consistent with current/admitting diagnoses that have resulted to mobility limitations, gait instability, generalized weakness, and impairment of motor control as demonstrated by the following impairment level findings: 1. Decreased strength to left knee major muscle groups 2. Impaired standing balance 3. Limitation of joint range of motion in left knee 4. vertigo 5. pain in left knee 6. impaired functional activity tolerance Impairments are contributing to the following functional limitations: 1. Inability to safely ambulate without assistive device 2. Increase completion time for mobility ADL performance 3. Increased fall risk 4. difficulty performing stairs independently Patient is assessed as a moderate complexity based on the following: History: 74-year-old female with impairment level findings, functional limitations, and past medical history as indicated above Examination: Demonstrable impairment in strength, balance, and mobility level with underlying impairments and functional limitations as documented above Presentation: evolving/stable Decision Making: moderate Goals: N/A. PT evaluation and 1-2 treatment sessions only for functional mobility training using recommended AD and for HEP instruction. Plan of Care/Treatment Plan: N/A. PT evaluation and 1-2 treatment session only for functional mobility training using recommended AD and for HEP instruction. DISCHARGE RECOMMENDATIONS: Home with HEP and Outpatient PT as scheduled TREATMENT CODE/TIME: 69579, 45880/ [id number] Thank you for the opportunity to participate in the care of this patient. Marion Rivas PT [facility]
== END 2024-10-15 14:00 | disposition home or self-care (01) ==
PROVIDERS: PCP Family Medicine; Visit Provider Student in an Organized Health Care Education/Training Program
PROC: (CPT 27447; principal; 2024-10-15 08:15)
DX: M17.12 Unilateral primary osteoarthritis, left knee (principal); K21.9 Gastro-esophageal reflux disease without esophagitis; G89.18 Other acute postprocedural pain
CPT/HCPCS: 27447; 64447; 64450; 97110; 97162; C1776; J0665; J0666; J0690; J1100; J2003; J2371; J2405; J2704; J3010

== ENCOUNTER 2024-10-23 01:59 | Outpatient (CLI) | payer MEDICARE, SELFPAY ==
--- NOTE | 2024-10-23 | DI.CT_ITS ---
Exam(s) MR LUMBAR SPINE WO CT LUMBAR SPINE WO EXAM: MR LUMBAR SPINE WO CLINICAL HISTORY: S/P LUMBAR SPINAL FUSION, Z98.1 LOW BACK PAIN, M54.50 DEG LUM DISC, M51.369 TECHNIQUE: Multiplanar multisequence MRI of the Lumbar Spine was performed. CONTRAST MATERIAL: Noncontrast COMPARISON: MR MRI - LUMBAR SPINE WO CONTRAST from 10/31/2017 CR XR LUMBAR SPINE COMPLETE from 02/28/2024 CR XR DEXA BONE DENSITY W/WO CARA from 02/28/2024 CR XR KNEE LT 3V AP,LAT,SHEREE from 03/26/[address] LUMBAR SPINE WO from 10/23/2024 FINDINGS: Bones: The last intervertebral disc space is designated the L5/S1 level for the numbering purpose of this examination. The vertebral body heights are well maintained. Alignment is satisfactory. The signal characteristics are unremarkable. Sclerosis in the endplates and vacuum disc phenomena visible on CT. Posterior fusion hardware from L3 through L5. L4 laminectomy. Cord: The conus tip ends at the T12 level. It is of normal size and signal intensity. T12-L1: Severe loss disc height. Vacuum disc phenomenon. Endplate osteophytes projecting circumferentially. Mild facet degenerative changes. Moderate to severe bilateral neural foraminal narrowing. No significant central canal stenosis. L1-2: Severe loss of disc height. Vacuum disc. Prominent endplate osteophytes projecting circumferentially. Facet degenerative changes. [id number]-nh-[id number] central canal stenosis. Moderate bilateral neural foraminal narrowing. L2-3: Severe loss of disc height. Vacuum disc. Prominent endplate osteophytes projecting circumferentially. Facet degenerative changes and ligamentous hypertrophy combining with the disc osteophytes protrude produce severe central canal stenosis as well as severe bilateral neural foraminal narrowing. L3-4: Mild loss of disc height. No disc herniations or bulges are present. No central canal stenosis or neural foraminal narrowing. Posterior fusion hardware. L4 laminectomy. Postsurgical fluid collection in this area. No findings to suggest an abscess. L4-5: Severe loss of disc height. L4 laminectomy. Posterior fusion hardware. Grade 1 spondylolisthesis appears unchanged from prior plain films. Severe right neural foraminal narrowing. No mild left neural foraminal narrowing. No central canal stenosis. L5-S1: The disc height is maintained. There are endplate osteophytes projecting laterally, causing mild bilateral neural foraminal narrowing. There are mild facet degenerative changes. No disc herniations or bulges are present. Soft tissues: The visualized SI joints and sacrum are well maintained. The paraspinal soft tissues are unremarkable. Bilateral renal cysts are again noted. No follow-up recommended. IMPRESSION: Posterior fusion hardware from L3 through L5. L4 laminectomy. Stable L4-5 spondylolisthesis. Severe central canal stenosis and severe bilateral neural foraminal narrowing at the L2-3 level secondary to a combination of degenerative disc changes and facet degenerative changes. Mild to moderate central canal stenosis and bilateral neural foraminal narrowing secondary to a combination degenerative changes at L1-2. DATA REPOSITORY:
== END 2024-10-23 02:19 ==
LOC: DI 01:59
PROVIDERS: PCP Family Medicine; Visit Provider Nurse Practitioner Family
DX: M51.369 Other intervertebral disc degeneration, lumbar region without mention of lumbar back pain or lower extremity pain (principal); Z98.1 Arthrodesis status
CPT/HCPCS: 77063; 77067; 72131; 72148

== ENCOUNTER 2024-10-23 09:16 | Outpatient (CLI) | payer MEDICARE, SELFPAY ==
--- NOTE | 2024-10-23 07:34 | DI.MAMMO_ITS ---
Exam(s) MAMMO SCREENING EXAM: MAMMO SCREENING CLINICAL HISTORY: screening,z12,39 TECHNIQUE: Mammograms were interpreted according to the usual protocol including computer analysis with CAD system, tomosynthesis and C-view imaging. COMPARISON: 2016 through 2021 FINDINGS: The breasts are composed of scattered fibroglandular densities, Breast Density category B. No suspicious masses or suspicious microcalcifications are seen. Stable benign calcifications are noted bilaterally. No skin thickening or abnormal axillary lymph nodes are seen. There has been no significant change from prior exams. IMPRESSION: BI-RADS Category 2 - Benign Findings Yearly screening mammography is recommended. Breast Density - Category B - There are scattered areas of fibroglandular density. Breast density Category C or D implies that the patient has dense breast tissue. Dense breast tissue can make it harder to find cancer on a mammogram. Dense breast tissue is also associated with an increased risk of breast cancer. This information about the result of the mammogram report was provided to the patient to raise their awareness. Use this report when you speak with the patient about their risks for breast cancer, which includes their family history. At that time, you may recommend additional screening tests (Ultrasound or MRI) as these tests may add significant information. A negative radiographic report should not delay biopsy if a dominant or clinically suspicious mass is present. Up to ten percent of cancers are not identified on mammography. A negative report may reinforce clinical impression. Adenosis and dense breasts may obscure an underlying neoplasm. False positive reports average 6 to 10%. Patient will receive a letter notifying them of these results.
== END 2024-10-23 09:36 ==
PROVIDERS: PCP Family Medicine; Visit Provider Obstetrics & Gynecology
DX: Z12.31 Encounter for screening mammogram for malignant neoplasm of breast (principal); R92.323 Mammographic fibroglandular density, bilateral breasts
CPT/HCPCS: 77063; 77067

== ENCOUNTER 2024-10-30 11:01 | Outpatient (CLI) | payer MEDICARE, SELFPAY ==
--- NOTE | 2024-10-30 10:30 | DI.RAD_ITS ---
Exam(s) XR KNEE LT 1V XR STANDING ALIGNMENT EXAM: XR STANDING ALIGNMENT CLINICAL HISTORY: 1ST POST OP S/P L TKA. TECHNIQUE: 2D digital imaging was performed. Standing AP views were performed from the pelvis through the ankles. Lateral view of the left knee COMPARISON: CR XR KNEE RT 3V AP,LAT,SHEREE from 06/24/2021 CR XR STANDING ALIGNMENT from 10/14/2021 CR XR KNEE LT 3V AP,LAT,SHEREE from 03/26/2024 CR XR KNEE LT 1V from 10/30/2024 FINDINGS: BONES: No acute fracture is present. No bony destructive lesion is seen. Leg length discrepancy: No significant overall leg length discrepancy. JOINTS: Knees: A left knee prosthesis has been placed since the previous exams. The alignment appears satisfactory. There has been no change in the appearance of the right knee prosthesis. The ankle joints are unremarkable. The hip joints are unremarkable. SOFT TISSUE: Normal. IMPRESSION: Status post placement of left knee prosthesis. Stable appearance of right knee prosthesis. No significant leg length discrepancy. DATA REPOSITORY: RADIATION DOSE DELIVERED:
== END 2024-10-30 11:02 | disposition home or self-care (01) ==
PROVIDERS: PCP Family Medicine; Visit Provider Physician Assistant
DX: Z47.1 Aftercare following joint replacement surgery (principal); Z96.652 Presence of left artificial knee joint
CPT/HCPCS: 99024; 73560; 77073

== ENCOUNTER 2024-11-03 18:22 | Outpatient (REF) | payer MEDICARE, SELFPAY | END 2024-11-03 18:23 | disposition home or self-care (01) | LOC: NCHCN 18:22 | PROVIDERS: PCP Family Medicine; Visit Provider Physician Assistant | DX: N39.0 Urinary tract infection, site not specified (principal) | CPT/HCPCS: 87077; 87086; 87186 ==

== ENCOUNTER 2024-11-30 12:18 | Emergency (ER) | payer MEDICARE, SELFPAY ==
[2024-11-30 12:21] VITALS: BP 107/64; PULSE 77; RESP 18; TEMP 36.6; O2SAT 95
--- NOTE | 2024-11-30 12:45 | DI.RAD_ITS ---
Exam(s) XR KNEE LT 3V AP,LAT,SHEREE EXAM: XR KNEE LT 3V AP,LAT,SHEREE CLINICAL HISTORY: Fall Leg pain. TECHNIQUE: 2D digital imaging was performed of the left knee. Three images were obtained. AP, lateral and PA tunnel views were obtained. COMPARISON: CR XR KNEE LT 1V from 10/30/2024 CR XR STANDING ALIGNMENT from 10/30/2024 FINDINGS: BONES: No acute fracture is present. No bony destructive lesion is seen. JOINTS: The patient's left total knee arthroplasty is stable without evidence of loosening. No joint effusion is seen. SOFT TISSUE: Normal. IMPRESSION: 1. There is no acute fracture or dislocation. 2. The preliminary [facility] report was reviewed. DATA REPOSITORY: RADIATION DOSE DELIVERED:
--- NOTE | 2024-11-30 12:45 | DI.RAD_ITS ---
Exam(s) XR FEMUR LT EXAM: XR FEMUR LT CLINICAL HISTORY: Fall, thigh pain. TECHNIQUE: 2D digital imaging was performed of the left femur. Four images were obtained. AP and lateral views were obtained. COMPARISON: CR XR KNEE LT 3V AP,LAT,SHEREE from 03/26/2024 CR XR KNEE LT 1V from 10/30/2024 CR XR STANDING ALIGNMENT from 10/30/2024 FINDINGS: BONES: No acute fracture is present. No bony destructive lesion is seen. Visualized portion of knee and hip joints are unremarkable. The patient has a stable left total knee arthroplasty. No evidence of hardware loosening is present. SOFT TISSUE: Normal. IMPRESSION: 1. There is no acute fracture or dislocation. 2. The preliminary [facility] report was reviewed. DATA REPOSITORY: RADIATION DOSE DELIVERED:
--- NOTE | 2024-11-30 12:46 | ED.GENADUL_ITS ---
Discharge Plan Disposition Patient Disposition: Home Condition: Stable Discharge Details Clinical Impression: Effusion of knee joint, left, Fall (on) (from) other stairs and steps, initial encounter Primary Care Provider: Asif Elam ED Provider: Palak Nicholas Home Meds and New Rx's Prescriptions: Continued cephalexin 500 mg capsule 500 mg PO BID Qty: 14 0RF atorvastatin [Lipitor] 40 mg tablet 40 mg PO QPM Qty: 90 3RF PreserVision AREDS-2 1 EACH capsule 1 ea PO BID lamotrigine 100 mg tablet 250 mg PO HS Qty: 225 3RF Rx Instructions: [facility] [place] meclizine 25 mg tablet 25 mg PO TID PRN (Reason: dizziness) Qty: 30 3RF estradiol [Vagifem] 10 mcg tablet 10 mcg vaginal .Twice weekly 90 Days Qty: 30 3RF nystatin 100,000 unit/gram cream 1 applic topical BID Qty: 30 1RF Rx Instructions: Apply twice daily with Temovate clobetasol 0.05 % ointment 1 applic topical BID Qty: 30 1RF Rx Instructions: Apply twice daily with nystatin cream betamethasone dipropionate 0.05 % cream 1 applic topical BID Qty: 45 1RF Rx Instructions: Apply twice daily with nystatin cream omeprazole 40 mg capsule,delayed release(DR/EC) 40 mg PO BID PRN (Reason: acid reflux) Qty: 180 3RF oxycodone 5 mg tablet 5 mg PO Q8H MDD 3 tabs PRN (Reason: pain) Qty: 15 0RF acetaminophen 500 mg tablet 1,000 mg PO TID Qty: 90 3RF aspirin 325 mg Tablet 650 mg PO DAILY Discharge Instructions Instructions: Preventing falls in adults, Knee Sprain ED Additional Instructions: At this time there is no acute fracture or broken bone noted on the x-rays. You do have a left knee effusion or some increase in the synovial fluid which is the fluid surrounding the knee joint. There is no obvious abnormality of the hardware or any prosthetic. Please keep your upcoming orthopedic appointment as previously scheduled. Please ice your knee, apply Gary wrap, and elevate when sitting or lying down. Follow up with orthopedics/primary care provider in 3-5 days. Return to ED sooner if any worsening swelling, redness, fever chills, worsening pain in knee, unable to bear weight or concerns. Referrals: Prohaska,Giovanny G, MD [ [facility] STAFF PHYSICIAN, Orthopaedic Surgical] - 1 week Referral Note: As previously scheduled, ER follow-up Clinical Impression: Effusion of knee joint, left; Fall (on) (from) other stairs and steps, initial encounter HPI General Mode of arrival: ambulatory . Date/Time Provider Initiated Documentation: 11/30/24 12:32 . Limitations to Documentation: no limitations . Information obtained by: patient, RN notes reviewed and old records reviewed . HPI Narrative: 74-year-old female presents to the ER with a chief complaint of left thigh pain after a mechanical fall yesterday. Patient states that she was stepping up onto a step and hit her left aleman on the step and fell forward. Since then she has noted left distal thigh pain that radiates up into her proximal thigh. She does have a history of a left knee replacement on October 15 approximately 6 weeks ago. She reports that she has pain with flexion of her knee and increased pain with weightbearing. Denies any other associated symptoms denies any headache, neck pain back pain or chest pain. She has been taking Tylenol and anti- inflammatories at home. She does have a history of hepatitis C, alcoholism, necrotizing fasciitis, carpal tunnel, bipolar disorder low back pain and multiple orthopedic surgeries and replacements. Related Data Home Medications ?Medication ?Instructions ?Recorded ?Confirmed vit C 250 mg-vit E 90 mg-zinc 40 1 ea PO BID 03/28/17 11/30/24 mg-copper 1 [id number] capsule (PreserVision AREDS-2) aspirin 325 mg tablet 650 mg PO DAILY 09/23/21 lamotrigine 100 mg tablet 250 mg (2.5 x 100 mg) PO HS #225 02/19/24 11/30/24 tabs meclizine 25 mg tablet 25 mg PO TID PRN dizziness # 30 03/17/24 11/30/24 tab-caps atorvastatin 40 mg tablet (Lipitor) 40 mg PO QPM #90 t abs 09/16/24 11/30/24 estradiol 10 mcg vaginal tablet 10 mcg vaginal .Twice weekly 3 09/22/24 11/30/24 (Vagifem) months #30 tabs betamethasone dipropionate 0.05 % 1 applic topical BID #45 grams 09/25/24 11/30/24 topical cream clobetasol 0.05 % topical ointment 1 applic topical BI D #30 grams 09/25/24 11/30/24 nystatin 100,000 unit/gram topical 1 applic topical BI D #30 grams 09/25/24 11/30/24 cream acetaminophen 500 mg tablet 1,000 mg (2 x 500 mg) PO T ID #90 10/15/24 11/30/24 tabs omeprazole 40 mg capsule,delayed 40 mg PO BID PRN acid reflux #180 10/21/24 11/30/24 release caps cephalexin 500 mg capsule 500 mg PO BID #14 caps 11/0311/30/24 oxycodone 5 mg tablet 5 mg PO Q8H PRN pain #15 tab s 11/06/24 11/30/24 Previous Rx's ?Medication ?Instructions ?Recorded lamotrigine 100 mg tablet 250 mg (2.5 x 100 mg) PO HS #225 02/19/24 tabs meclizine 25 mg tablet 25 mg PO TID PRN dizziness # 30 03/17/24 tab-caps atorvastatin 40 mg tablet (Lipitor) 40 mg PO QPM #90 t abs 09/16/24 estradiol 10 mcg vaginal tablet 10 mcg vaginal .Twice weekly 3 09/22/24 (Vagifem) months #30 tabs betamethasone dipropionate 0.05 % 1 applic topical BID #45 grams 09/25/24 topical cream clobetasol 0.05 % topical ointment 1 applic topical BI D #30 grams 09/25/24 nystatin 100,000 unit/gram topical 1 applic topical BI D #30 grams 09/25/24 cream acetaminophen 500 mg tablet 1,000 mg (2 x 500 mg) PO T ID #90 10/15/24 tabs omeprazole 40 mg capsule,delayed 40 mg PO BID PRN acid reflux #180 10/21/24 release caps cephalexin 500 mg capsule 500 mg PO BID #14 caps 11/03 oxycodone 5 mg tablet 5 mg PO Q8H PRN pain #15 tab s 11/06/24 Allergies Allergy/AdvReac Type Severity Reaction Status Date / Time No Known Allergies Allergy Verified 11/30/24 12:31 General Stated Complaint: Orthopedic MALA: 4 Review of Systems All systems reviewed & are unremarkable except as noted in HPI and below Musculoskeletal Musculoskeletal: Reports as per HPI, Denies back pain, Reports arthralgias and Reports joint swelling (Left knee, warmth, swelling) Exam Extrem Left lower extremity: hip/thigh Details: tenderness Location: of the mid upper leg; not of the hip; no deformity and knee Details: tenderness, swelling and warmth Course Vital Signs Vital signs: Vital Signs Temperature 36.6 C 11/30/24 12:21 Pulse 77 11/30/24 12:21 Respiratory Rate 18 11/30/24 12:21 Blood Pressure 107/64 11/30/24 12:21 Pulse Oximetry 95 11/30/24 12:21 Temperature 36.6 C 11/30/24 12:21 Temperature Source Oral 11/30/24 12:21 Pulse 77 11/30/24 12:21 Respiratory Rate 18 11/30/24 12:21 Blood Pressure 107/64 11/30/24 12:21 Blood Pressure Position Sitting 11/30/24 12:21 Pulse Oximetry 95 11/30/24 12:21 Oxygen Delivery Method Room Air 11/30/24 12:21 Oxygen Flow Rate 0 11/30/24 12:21 Pain Level 2 11/30/24 12:21 Comment with weight bearing 08/1911/30/24 12:21 Medical Decision Making X-ray left femur and left knee ordered. X-rays show a left knee effusion and/or synovial hypertrophy. No obvious fracture or abnormality of the knee prosthetic. Discussed home care including RICE procedures with patient and follow-up care. She reports she has an orthopedic follow-up appointment on Sunday and PT on Sunday. I did encourage her to discuss this with her physical therapist so they are aware. She verbalized understanding. Patient was ambulatory with a walker upon discharge in hemodynamically stable condition. This text was generated using [employer] dictation system, please disregard any oddities of phrase or misspellings. Medical Records Medical records reviewed: Yes I reviewed the patient's medical records. Imaging Data Radiologic Study: Imaging: X-Ray Radiologist's impression: Age: 74 years old Clinical indication: Other: Fall leg pain; Prior surgery; Surgery date: 1-6 months; Surgery type: Knee placement TECHNIQUE: Imaging protocol: Radiologic exam of the left knee. Views: 3 views. COMPARISON: CR XR KNEE LT 1V 10/30/2024 11:14 AM (report not provided) FINDINGS: Bones/joints: A total knee prosthesis is again present. It is in stable and satisfactory position and alignment. There is no new periprosthetic lucency. No acute fracture is identified. There is a similar corticated ossific density dorsal to the distal femur on the lateral view. Soft tissues: Mild fullness of the soft tissues in the suprapatellar region is noted. The soft tissues appear otherwise grossly unremarkable. IMPRESSION: 1. Satisfactory appearance of a total knee arthroplasty, stable as compared with 10/30/2024. No acute fracture identified. 2. Mild suprapatellar soft tissue fullness suggesting effusion and/or synovial hypertrophy. Thank you for allowing us to participate in the care of your patient. Dictated and Authenticated by: Félix Smiley MD Quality:SDOH Health Related Social Needs: Health related social needs inadequate housing PFSH All Active Problems (Updated 11/30/24 @ 14:59 by Palak Nicholas NP) Fall (on) (from) other stairs and steps, initial encounter (Acute) Effusion of knee joint, left (Acute) History of total left knee replacement (Acute 10/15/24) Yeast dermatitis (Acute) Atrophic vulvovaginitis (Acute) Female perineal bleeding (Acute) Dysphagia (Acute) Change in stool habits (Acute) Muscular deconditioning (Acute) Bunion of right foot (Acute) Risk for coronary artery disease between 10% and 20% in next 10 years (Acute) Cervical spine degeneration (Acute) Neck pain (Acute) Hyperglycemia (Acute) Calculus of kidney (Acute 08/27/15) Sepsis due to Staphylococcus (Acute) Status post hernia repair (Acute) Tendinitis of left rotator cuff (Acute) Back pain (Chronic) Meniere syndrome (Chronic) see ENT as arranged Left hand weakness (Acute 01/11/17) Ulnar neuropathy at elbow of left upper extremity (Acute 03/28/17) TMJ syndrome (Acute 03/25/15) Spinal stenosis of lumbar region with neurogenic claudication (Acute 11/09/17) cleared for surgery on low back reassured about neck node--will follow Right carpal tunnel syndrome (Acute 09/19/17) Polyp of colon (Acute 06/09/13) 06/09/13; DR. 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 Vertigo Recommend premedication with Scopolamine for nausea as pt takes Meclizine 2- 3/week prn for frequent bouts of vertigo Necrotizing fasciitis in abdomen, 2005 Polyp of colon History of alcoholism Esophagitis TMJ syndrome Left hand weakness Hepatitis C 15 monthes of interferon, no longer postive for hep c per pt. Numbness and tingling in left arm Renal stones Hyperlipidemia Ulnar neuropathy at elbow of left upper extremity Staphylococcal sepsis Left carpal tunnel syndrome Low back pain with sciatica Depressed bipolar I disorder Right carpal tunnel syndrome Surgical History History of total right knee replacement (09/27/21) History of right knee joint replacement S/P trigger finger release Right thumb, 3 digits left hand H/O toe surgery Dr. Faulkner, removed part of great toe d/t osteoarthritis per pt Status post unilateral salpingo-oophorectomy H/O carpal tunnel repair left Hx of section x 2 Fusion of lumbar spine (~12/25/17) [facility] [place]L3-4 DECOMPRESSION AND FUSION Abdominal hysterectomy (~2000) Pt. states she did not have this done,pt. states she has had a fallopian tube and one ovary EGD - [facility] (06/2023) Colonoscopy - [facility] (~06/2023) 06/09/13; TUBULAR ADENOMA Bunionectomy 04/13/17; DR. NORMAN Family History Mother , age 94 Stroke Father , ANEURYSM at age 64. Alcohol abuse Heart disease Sister , age 62 Substance abuse Heart disease Sister Breast cancer Brother MS (multiple sclerosis) Maternal Grandfather Heart disease Paternal Grandfather Aneurysm Maternal Grandmother Parkinsons disease Son No problems noted. Son No problems noted. Son No problems noted. Daughter No problems noted. Social History Smoking/Tobacco Use Status: Never Second Hand Exposure: Yes Smoking risk assessment performed?: Yes Alcohol Intake: former Year quit: 1979 Drug use: Current Sobriety Substance use type: former substance user Date of last use: Counseling given: No Details: 38 years since alcohol intake Caregiver/Support person: No Household members: none Housing: house Communication Needs: None Do you need help understanding health information?: Rarely Pets and animals: No Sexually active: No Do you think of yourself as: straight/heterosexual Current gender identity: female What is your relationship status?: How often do you talk on the phone with friends or family?: three or more times per week How often do you get together with friends or relatives?: three or more times per week How often do you attend jain or mosque services?: 1-3 times per year Do you belong to any clubs or organized social groups?: yes Panel score (0-1 are the most socially isolated patients): 2 What type of physical activity do you participate in: walking and bicycling Duration: 45-60 minutes/day Frequency: daily Deboar/Congregation: [employer] Special debora needs: No Seatbelt use: always Helmet use: Yes Helmet use: sometimes Drive 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 Date GA/Weeks # Preg Succ Route Wgt Sex Labor Lgth Anesth esia Location Prov Complic Unknown vaginal 3316.894 g Unknown vaginal 4280.778 g Unknown 4124.856 g Unknown Yes 4224.079 g Delivery Date: Last Updated by: Idania Dyson RN Home Delivery Date: Last Updated by: Idania Dyson RN Home Delivery Date: Last Updated by: Idania Dyson RN [facility] Delivery Date: Last Updated by: Idania Dyson RN [facility]
--- NOTE | 2024-11-30 14:45 | DI.[facility]_ITS ---
PROCEDURE INFORMATION: Exam: XR Left Knee Exam date and time: 11/30/2024 1:07 PM Age: 74 years old Clinical indication: Other: Fall leg pain; Prior surgery; Surgery date: 1-6 months; Surgery type: Knee placement TECHNIQUE: Imaging protocol: Radiologic exam of the left knee. Views: 3 views. COMPARISON: CR XR KNEE LT 1V 10/30/2024 11:14 AM (report not provided) FINDINGS: Bones/joints: A total knee prosthesis is again present. It is in stable and satisfactory position and alignment. There is no new periprosthetic lucency. No acute fracture is identified. There is a similar corticated ossific density dorsal to the distal femur on the lateral view. Soft tissues: Mild fullness of the soft tissues in the suprapatellar region is noted. The soft tissues appear otherwise grossly unremarkable. IMPRESSION: 1. Satisfactory appearance of a total knee arthroplasty, stable as compared with 10/30/2024. No acute fracture identified. 2. Mild suprapatellar soft tissue fullness suggesting effusion and/or synovial hypertrophy. Dictated and Authenticated by: Fléix Smiley MD. Orderin Cristopher Cid MD
--- NOTE | 2024-11-30 14:46 | DI.[facility]AD_ITS ---
PROCEDURE INFORMATION: Exam: XR Left Femur Exam date and time: 11/30/2024 1:05 PM Age: 74 years old Clinical indication: Other: Fall leg pain; Prior surgery; Surgery date: 1-6 months; Surgery type: Knee replacement on October 15 2024 TECHNIQUE: Imaging protocol: Radiologic exam of the left femur. Views: 2 views. (3 images total) COMPARISON: 1. CR XR KNEE LT 1V 10/30/2024 11:14 AM 2. CR XR KNEE LT 3V AP,LAT,SHEREE 11/30/2024 1:07 PM FINDINGS: Bones/joints: No acute fracture is identified. The hip joint is normally aligned. There is a small os acetabula. The femoral head articular contour is maintained, and the femoral head appears to be of normal density. . Productive changes are present along the greater trochanter. A knee prosthesis is again present. Soft tissues: Grossly unremarkable. IMPRESSION: No acute fracture or hip joint dislocation identified. Dictated and Authenticated by: Félix Smiley MD. Orderin Cristopher Cid MD
== END 2024-11-30 15:06 | disposition home or self-care (01) ==
PROVIDERS: Emergency Provider Registered Nurse Emergency; PCP Family Medicine
DX: M25.462 Effusion, left knee (principal); W10.9XXA Fall (on) (from) unspecified stairs and steps, initial encounter
CPT/HCPCS: 99284; 99283; 73552; 73562

== ENCOUNTER → 2024-12-05 08:13 | Outpatient (BNVA) | payer MEDICARE, SELFPAY | PROVIDERS: PCP Family Medicine; Referring Provider Family Medicine; Visit Provider Physician Assistant | DX: Z47.1 Aftercare following joint replacement surgery (principal); Z96.652 Presence of left artificial knee joint | CPT/HCPCS: 99024 ==

== ENCOUNTER → 2025-01-16 09:15 | Outpatient (BNVA) | payer MEDICARE, SELFPAY | PROVIDERS: PCP Family Medicine; Referring Provider Family Medicine; Visit Provider Physician Assistant | DX: Z47.1 Aftercare following joint replacement surgery (principal); Z96.652 Presence of left artificial knee joint | CPT/HCPCS: 99212 ==